=== PATIENT | female | born 1945 | race Caucasian/White ===

== ENCOUNTER → 2020-03-31 09:03 | Outpatient (BNVA) | payer MEDICARE, OTHER, SELFPAY | PROVIDERS: Family Provider Family Medicine; Visit Provider Dermatology | DX: L57.0 Actinic keratosis (principal); L82.0 Inflamed seborrheic keratosis; L85.3 Xerosis cutis; D18.01 Hemangioma of skin and subcutaneous tissue; Z85.89 Personal history of malignant neoplasm of other organs and systems; Z12.83 Encounter for screening for malignant neoplasm of skin | CPT/HCPCS: 17000; 17003; 99203 ==

== ENCOUNTER 2020-08-19 02:56 | Emergency (ER) | payer MEDICARE, OTHER, SELFPAY ==
[2020-08-19] VITALS (9 sets, daily range): BP systolic 130–188; BP diastolic 74–130; PULSE 56–87; RESP 14–23; TEMP 36.8; O2SAT 95–98; BMI 33.9
--- NOTE | 2020-08-19 02:59 | ED_ITS ---
HPI - Chest Pain General: Chief Complaint: Chest Pain Stated Complaint: CHEST PAIN Time Seen by Provider: 08/19/20 02:58 Source: patient Mode of arrival: ambulatory Limitations: no limitations History of Present Illness: HPI narrative: Nicole is a very nice 74-year-old female who comes in complaining of epigastric pain that has been constant for the past 24 hours. Initially she thought she had food poisoning as she ate some place that she did not normally eat in the food did not taste right to her. Within a few hours after eating this food she began to vomit and have sign ificant epigastric pain. Since then the pain is continued and she has vomited multiple times since. She states the vomit is mostly bile. She has loss of appetite but denies any migration of her pain. Denies any diarrhea. There is been no blood in her stools or blood in her emesis. She states that epigastric pain is a tight feeling in the center of her upper abdomen that does not radiate. She does state the pain because her breath to get taken away. She had one episode of diaphoresis but not consistently with this. She is unaware of any aggravating or alleviating factors. Patient denies having anything similar to this in the past. She did try taking 2 oxycodone's that she had at home for the pain but she states it did not help. Associated symptoms: Reports abdominal pain, nausea and vomiting; Deny diaphoresis, dyspnea, fever(s), palpitations or syncope Review of Systems Const: Denies: fever(s), chills, body aches, fatigue, malaise or diaphoresis Eyes: Denies: change in vision, blurry vision, photophobia, eye discomfort, eye discharge, eye redness or yellow eyes ENMT: Denies: throat pain, odynophagia, hoarseness, swelling of lips/tongue, ear or mastoid pain, ear discharge, change in hearing or nasal discharge Card: Denies: chest pain, palpitations, irregular heart rhythm, edema, lightheadedness, syncope, pre-syncope, dyspnea on exertion or orthopnea Resp: Denies: dyspnea, productive cough, non-productive cough, wheezing, hemoptysis or chest congestion GI: Reports: abdominal pain, nausea and vomiting; Denies: hematemesis, coffee ground emesis, heartburn, diarrhea, constipation, GI cramping, hematochezia or melena : Denies: flank pain, dysuria, urinary frequency, urinary urgency or hematuria Musc: Denies: neck pain, back pain, extremity pain, extremity swelling, joint pain, joint swelling, joint redness, joint warmth or joint stiffness Skin/Breast: Denies: rash, pruritus, erythema, skin pain or skin tenderness Neuro: Denies: headache(s), numbness in extremities, weakness in extremities, sensory changes, lack of coordination, difficulty walking, dizziness, vertigo, confusion, Slurred speech present or seizure-like activity Pawel/Lymph: Denies: easy bruising, easy bleeding, petechiae, purpura or enlarged lymph nodes All/Imm: Denies: urticaria, throat swelling, tongue swelling, facial swelling or acute wheezing PFSH ED PFSH: Medical History (Updated 08/19/20 @ 05:21 by Lolis Aden) Cervical cancer Colonic polyp History of squamous cell carcinoma Hypertension Squamous acanthoma of left upper extremity Surgical History (Updated 08/19/20 @ 03:13 by Lolis Aden) H/O: hysterectomy Family History Father Hypertension Social History (Updated 03/31/20 @ 09:21 by Mariama Ndiaye LPN) Smoking and tobacco status: never smoked Alcohol intake: never Physical Exam Const: COMMON NORMALS: no acute distress, patient oriented x3, no limitations and alert GENERAL APPEARANCE: cooperative HENMT: COMMON NORMALS: normocephalic, atraumatic, external ears normal, EAC's normal and Normal external nose present HEAD & SCALP: normal to inspection, normocephalic and atraumatic FACE & SINUS: normal facial exam and face symmetric NOSE: Normal external nose present and Normal nares present EXTERNAL EAR: Yes external ears normal EXTERNAL AUDITORY CANAL: EAC's normal MOUTH: Normal oral and palatal mucosa present, lip normal and tongue normal Eye: COMMON NORMALS: Equal, round and reactive pupils present and conjunctivae normal GENERAL EYE: appearance normal, both eyes and all related structures ALIGNMENT: Yes alignment normal PERIORBITAL: periorbital findings normal EYELID: eyelids normal CONJUNCTIVA: Yes conjunctivae normal SCLERA: sclerae normal PUPIL: Yes Equal, round and reactive pupils present Neck/C-Spine: COMMON NORMALS: full ROM, no lymphadenopathy, supple, no meningeal signs and no JVD GENERAL: Yes normal visual inspection and Yes trachea midline Chest: COMMONS NORMALS: normal inspection of the chest and normal palpation of entire chest wall Resp: COMMON NORMALS: normal respiratory effort, No retractions, No use of accessory muscles and clear to auscultation bilaterally EFFORT & INSPECTION: Yes able to speak in complete sentences and Yes symmetric chest movement AUSCULTATION: clear to auscultation bilaterally, no crackles, no rales, no rhonchi and no wheezes Cardio: COMMON NORMALS: no JVD, regular rate, regular rhythm, S1 normal heart sound present and S2 normal heart sound present RATE: regular rate RHYTHM: regular rhythm HEART SOUNDS: S1 normal heart sound present, S2 normal heart sound present, no click, no gallops, no murmurs and no rubs GI: COMMON NORMALS: Soft to palpation and No hepatosplenomegaly present PALPATION: Yes Soft to palpation, Yes Tenderness to palpation present (GI) (Epigastric and right upper quadrant -moderate without rebound or guarding.), No Guarding due to palpation present (GI), No Rigid due to palpation, Yes No hepatosplenomegaly present, No Hernia present, No Palpable mass present and No Pulsatile mass present : COMMON NORMALS: Yes no CVA tenderness BLADDER/KIDNEY EXAM: Yes no CVA tenderness EXTERNAL FEMALE EXAM: No Hernia present Back/Pelvis: COMMON NORMALS: no CVA tenderness, thoracic and lumbar spine normal to inspection, no thoracic nor lumbar tenderness and thoraco-lumbar ROM normal Extremity: COMMON NORMALS: normal to inspection, full ROM, capillary refill normal, no joint enlargement, no clubbing, cyanosis or edema and no calf tenderness Neuro: COMMON NORMALS: patient oriented x3, CN's II-XII intact bilaterally, moves all extremities, no focal motor deficits and no sensory deficits noted SENSORIUM/ORIENTATION: Yes alert MENINGEAL SIGNS: Yes no meningeal signs SPEECH: speech normal Psych: COMMON NORMALS: mental status grossly normal, Normal thought process present, cooperative, normal affect, speech normal and activity/motor behavior normal SPEECH: Yes normal speech THOUGHT PROCESS: Normal thought process present Skin: COMMON NORMALS: no rashes or lesions noted, turgor normal, no jaundice, no petechiae and no mottling GENERAL SKIN EXAM: no rashes or lesions noted and turgor normal Course Vital Signs: Vital signs: Vital Signs Temperature 98.3 F 08/19/20 02:59 Pulse Rate 67 08/19/20 04:49 Respiratory Rate 15 08/19/20 04:49 Blood Pressure 131/95 08/19/20 04:49 Pulse Oximetry 95 08/19/20 04:49 MDM - Chest Pain MDM Narrative: Medical decision making narrative: 0523 -Mrs. Haskins is a very nice 74-year-old female who comes in with 24 to 36 hours worth of constant epigastric and right upper quadrant pain. Patient has had several episodes of bilious vomiting. Her pain is located in the epigastric and right upper quadrant and can be reproduced on palpation. She has no lower abdominal pain. She denies any urinary symptoms or diarrhea. There is been no blood in her vomit or blood in her stools. On ultrasound the patient has gallstones including some in the neck of the gallbladder. Her gallbladder wall was not thickened. Her liver enzymes were consistent with a fatty liver but there was no signs of biliary obstruction. Differential diagnosis is extensive including cholecystitis, peptic ulcer disease, gastritis, GERD, bowel obstruction, among many others. Here the patient got complete relief with a GI cocktail but then after approximately 45 minutes the patient thought the pain was beginning to recur so we gave her morphine which subsided the recurrence of pain. The patient's EKGs have been unremarkable and her troponins are normal and not elevating. The patient feels dramatically better now and wants to go home. Her was concerned that she was in so much pain at home that if this recurred she may not be able to tolerate it. I offered to call Dr. Soriano and have him consider her for observation and possible consideration of cholecystectomy or EGD but she declines. She states she is feeling so much better she would like to go home. I have informed her that this does not rule out severe or even possibly life-threatening cause of her pain in her abdomen. Patient understands this and she does understand the importance of follow-up. She is going to follow a clear liquid diet and advance only as tolerated. I will place her on Augmentin to cover any possible developing cholecystitis. Patient agrees to return if her abdominal pain returns, she doubles a fever, she is to vomit again or has any new symptoms. At this time on repeat exam the patient is stable vital signs her abdomen is soft and nontender. Lab Data: Attestation: I reviewed the patient's lab results. Labs: Lab Results 08/19/20 08/19/20 08/19/20 Range/Units 03:09 03:09 03:09 WBC 13.3 H (4.0-10.0) 10^3/ uL RBC 4.83 (4.1-5.3) 10^6/u L Hgb 14.7 (11.5-15.3) g/dL Hct 44.2 (37.0-47.0) % MCV 91.5 (81-99) fL MCH 30.4 (28.0-34.0) pg MCHC 33.3 (30.0-36.0) g/dL RDW 14.0 (12.1-15.1) % Plt Count 295 (130-400) 10^3/c mm MPV 10.0 (7.4-10.4) fL Neut % (Auto) 74.0 % Lymph % (Auto) 17.9 % [place] % (Auto) 7.0 % Eos % (Auto) 0.5 % Baso % (Auto) 0.4 % Neut # (Auto) 9.85 H (1.8-7.7) 10^3/u L Lymph # (Auto) 2.4 (0.8-4.8) 10^3/u L [place] # (Auto) 0.9 (0.2-0.9) 10^3/u L Eos # (Auto) 0.1 (0.0-0.8) 10^3/u L Baso # (Auto) 0.1 (0.0-0.1) 10^3/u L Nucleated RBC % (a uto) 0 % Nucleated RBCs # 0.0 /100WBC PT 12.70 (12.1-14.9) SECO NDS INR 0.92 (0.8-1.2) Sodium 134 L (136-145) mmol/L Potassium 3.0 L (3.5-5.1) mmol/L Chloride 96 L (98-107) mmol/L Carbon Dioxide 26 (22-29) mmol/L Anion Gap 15.0 (5-19) BUN 16 (8-23) mg/dL Creatinine 0.7 (0.5-0.9) mg/dL GFR Calculation Not Reportable Glucose 165 H (65-115) mg/dL Calculated Osmolal ity 283 L (285-295) mOsm/k g Calcium 9.3 (8.5-10.5) mg/dL Magnesium 1.8 (1.7-2.3) mg/dL Total Bilirubin 1.0 (0.15-1.2) mg/dL AST 39 H (0-32) U/L ALT 44 H (0-33) U/L Alkaline Phosphata se 90 (35-105) IU/L Troponin T Baselin e (0-10) ng/L Troponin T 120 Min [place] (0-10) ng/L Delta Troponin T (0-10) ABS# NT-Pro-B Natriuret Pep 138 H (0-125) pg/mL Total Protein 7.0 (6.6-8.7) g/dL Albumin 4.3 (3.5-5.2) g/dL Globulin 2.7 (1.3-4.6) g/dL Lipase 21 (13-60) U/L H. pylori IgG Anti body (Negative) 08/19/20 08/19/20 08/19/20 Range/Units 03:09 03:09 04:48 WBC (4.0-10.0) 10^3/ uL RBC (4.1-5.3) 10^6/u L Hgb (11.5-15.3) g/dL Hct (37.0-47.0) % MCV (81-99) fL MCH (28.0-34.0) pg MCHC (30.0-36.0) g/dL RDW (12.1-15.1) % Plt Count (130-400) 10^3/c mm MPV (7.4-10.4) fL Neut % (Auto) % Lymph % (Auto) % [place] % (Auto) % Eos % (Auto) % Baso % (Auto) % Neut # (Auto) (1.8-7.7) 10^3/u L Lymph # (Auto) (0.8-4.8) 10^3/u L [place] # (Auto) (0.2-0.9) 10^3/u L Eos # (Auto) (0.0-0.8) 10^3/u L Baso # (Auto) (0.0-0.1) 10^3/u L Nucleated RBC % (a uto) % Nucleated RBCs # /100WBC PT (12.1-14.9) SECO NDS INR (0.8-1.2) Sodium (136-145) mmol/L Potassium (3.5-5.1) mmol/L Chloride (98-107) mmol/L Carbon Dioxide (22-29) mmol/L Anion Gap (5-19) BUN (8-23) mg/dL Creatinine (0.5-0.9) mg/dL GFR Calculation Glucose (65-115) mg/dL Calculated Osmolal ity (285-295) mOsm/k g Calcium (8.5-10.5) mg/dL Magnesium (1.7-2.3) mg/dL Total Bilirubin (0.15-1.2) mg/dL AST (0-32) U/L ALT (0-33) U/L Alkaline Phosphata se (35-105) IU/L Troponin T Baselin e 7 (0-10) ng/L Troponin T 120 Min [place] 7.14 (0-10) ng/L Delta Troponin T 0.14 (0-10) ABS# NT-Pro-B Natriuret Pep (0-125) pg/mL Total Protein (6.6-8.7) g/dL Albumin (3.5-5.2) g/dL Globulin (1.3-4.6) g/dL Lipase (13-60) U/L H. pylori IgG Anti body Negative (Negative) Imaging Data^: CXR: Attestation: I personally reviewed and interpreted this imaging study as follows: My impression: Borderline cardiomegaly. Poor inspiration. No acute cardiopulmonary findings. US: My impression: Ultrasound abdomen, tech interpretation -gallstones present with gallstone in the neck of gallbladder. No wall thickening. Normal common bile duct. No pericholecystic fluid. Fatty liver. Otherwise unremarkable exam. EKG Data^: EKG 1: Attestation: I personally reviewed and interpreted this EKG as follows: EKG interpretation date: 08/19/20 EKG interpretation time: 03:01 Interpretation: Normal sinus rhythm at 70 beats minute, no blocks, normal intervals, nonspecific ST and T wave changes. No old for comparison. EKG 2: Attestation: I personally reviewed and interpreted this EKG as follows: EKG interpretation date: 08/19/20 EKG interpretation time: 04:49 Interpretation: Normal sinus rhythm at 65 beats a minute, no blocks, normal intervals, nonspecific ST and T wave changes. Similar to previous. Discharge Plan Discharge Patient Disposition: Home Clinical Impression: Abdominal pain Qualifiers: Abdominal location: right lower quadrant Qualified Code(s): R10.31 - Right lower quadrant pain Condition: Stable Prescriptions: New Zofran 4 mg tablet 4 mg PO Q6H PRN (Reason: nausea and vomiting) Qty: 20 RF: 0 Protonix 40 mg tablet,delayed release (DR/EC) 40 mg PO DAILY Qty: 30 RF: 0 Augmentin 875-125 mg tablet 1 tab PO BID 10 Days Qty: 20 RF: 0 Carafate 1 gram tablet 1 g PO Q6H 28 Days Qty: 112 RF: 0 No Action Pulmicort Flexhaler 180 mcg/actuation aerosol powdr breath activated 2 inh INHALATION BID RF: 0 hydrochlorothiazide 25 mg tablet 25 mg PO DAILY RF: 0 fexofenadine [Rafaela Allergy] 60 mg tablet 60 mg PO Q12H PRNRF: 0 Discharge Orders: Discharge ED (Routine); Ordered 08/19/20 Ordered By: Lolis Aden Referrals: Rikki Soriano MD [Physician] - 1-3 days Discharge Diet: Advance as tolerated and Clear Liquid Patient Instructions: Clear Liquid Diet (ED), Abdominal Pain (ED) Activity Restrictions/Additional Instructions: Please return to the ER immediately for any of the signs or symptoms listed on your discharge instruction sheets, worsening/changing of your symptoms, you are not getting better as quickly as expected, or for ANY other cause or concerns. You have been offered further evaluation and care here but have declined. If you develop chest pain, your abdominal pain returns, he began to vomit again, he develop a fever, or you develop any new signs or symptoms please return to the ER immediately for recheck. Follow a clear liquid diet and advance it only as your pain subsides and stays gone. Take the medications as I have prescribed you. Be certain to call Dr. Soriano's office as soon as possible for an appointment to follow-up with him. Coding Level of Care Code ED Weight Training Instructor for Chg Fwd Exam Comprehensive
--- NOTE | 2020-08-19 02:59 | XR_ITS ---
WS: [id number] PORTABLE CHEST HISTORY: Chest pain COMPARISON: None available. Pulmonary hyperexpansion with mild pulmonary congestion. No pleural effusion or pneumothorax. Cardiac size: Normal. Mediastinum/Aorta: Normal mediastinum. No osseous abnormality seen. XR/XR chest 1V portable [id number] IMPRESSION: Mild pulmonary venous congestion. No pneumonia.
[2020-08-19 03:13] LABS: Basophils # 0.1 10^3/uL (0.0-0.1); Basophils % 0.4 %; Eosinophils # 0.1 10^3/uL (0.0-0.8); Eosinophils % 0.5 %; Hematocrit 44.2 % (37.0-47.0); Hemoglobin 14.7 g/dL (11.5-15.3); Lymphocytes # 2.4 10^3/uL (0.8-4.8); Lymphocytes % 17.9 %; Mean Corpuscular HGB Conc 33.3 g/dL (30.0-36.0); Mean Corpuscular Hemoglobin 30.4 pg (28.0-34.0); Mean Corpuscular Volume 91.5 fL (81-99); Monocytes # 0.9 10^3/uL (0.2-0.9); Neutrophils # 9.85 10^3/uL (1.8-7.7); Nucleated Red Blood Cells % 0 %; Platelet Count 295 10^3/cmm (130-400); Red Blood Count 4.83 10^6/uL (4.1-5.3); White Blood Count 13.3 10^3/uL (4.0-10.0)
[2020-08-19] MEDS: sodium chloride 0.9% 1,000 ML 100 ML IV (03:20)
[2020-08-19] MEDS: ondansetron 2 mg/ML SDV 2 mL 4 MG IVP ×2 (03:20→05:28)
[2020-08-19] MEDS: lidocaine 2% viscous 15 ML, aluminum-mag hydrox-simethicon 30 ML, sucralfate oral liq 1 GM PO (03:22)
[2020-08-19] MEDS: aspirin 325 mg Tablet PO (03:23)
--- NOTE | 2020-08-19 03:31 | US_ITS ---
WS: [id number] ULTRASOUND ABDOMEN LIMITED CLINICAL INFORMATION: Pain COMPARISON: None. FINDINGS: Liver Size: Normal. Craniocaudal length: 15.4 cm. Echogenicity: Normal. Surface nodularity: None. Mass (size and location): None. Bile ducts Intrahepatic ducts: Normal. Common bile duct diameter: 0.5 cm. Gallbladder Cholelithiasis Gallstones: Present Gallbladder sludge: None. Gallbladder wall thickening: None. Pericholecystic fluid: None. Sonographic Younger sign: Absent. Pancreas Normal as visualized. Right kidney: Normal. Hydronephrosis: None. Size: 11.2 cm x 5.8 cm x 4.7 cm. Abdominal aorta and IVC Visualized portions are normal. Ascites: None. US/US gall bladder [id number] IMPRESSION: 1. Liver is normal in appearance. 2. Cholelithiasis. No gallbladder wall thickening or pericholecystic fluid. 3. Normal common bile duct. 4. No hydronephrosis in right kidney.
[2020-08-19 03:37] LABS: Troponin(5th) Baseline 7 ng/L (0-10)
[2020-08-19 03:39] LABS: INR 0.92 (0.8-1.2)
[2020-08-19 03:46] LABS: Alanine Aminotransferase 44 U/L (0-33); Albumin Level 4.3 g/dL (3.5-5.2); Alkaline Phosphatase 90 IU/L (35-105); Aspartate Amino Transferase 39 U/L (0-32); Blood Urea Nitrogen 16 mg/dL (8-23); Calcium 9.3 mg/dL (8.5-10.5); Carbon Dioxide 26 mmol/L (22-29); Chloride 96 mmol/L (98-107); Globulin 2.7 g/dL (1.3-4.6); Glucose 165 mg/dL (65-115); Lipase 21 U/L (13-60); Magnesium 1.8 mg/dL (1.7-2.3); NT Pro B Type Natriuretic Pept 138 pg/mL (0-125); Osmolality Calculated 283 mOsm/kg (285-295); Sodium 134 mmol/L (136-145)
[2020-08-19] MEDS: pantoprazole 40 mg SDV 80 MG IVP (03:50)
[2020-08-19] MEDS: morphine 4 mg/mL SDV 1 mL 5 MG IVP (03:52)
[2020-08-19] MEDS: potassium chloride premix 100 ML 50 MEQ IV (03:58)
[2020-08-19 04:07] LABS: H. Pylori IgG Antibody Negative (Negative)
--- NOTE | 2020-08-19 05:00 | ECG_ITS ---
[facility] Test Date: 2020-08-19 Pat Name: Nicole Haskins Department: Room: Gender: Female Dog Licenser: : 1945 Requested By: Lolis Sam Order Number: [id number] Wong MD: Selin Khan M.D. Measurements Intervals [place] Rate: 65 P: 55 DE: 160 QRS: 27 QRSD: 89 T: 38 QT: 392 QTc: 410 Interpretive Statements SINUS RHYTHM LOW QRS VOLTAGE IN PRECORDIAL LEADS [QRS DEFLECTION < 1.0 mV IN CHEST LEADS] NONSPECIFIC T-WAVE ABNORMALITY No previous ECG available for comparison Electronically Signed On 08-19-2020 6:51:13 CYBER INTELLIGENCE ANALYST by Selin Khan M.D. [id number]
[2020-08-19 05:10] LABS: Troponin 5 2HR 7.14 ng/L (0-10); Troponin 5 2HR Delta 0.14 ABS# (0-10)
[2020-08-19] MEDS: amoxicillin-clav 875-125 mg Tablet 1 TAB PO (05:28)
== END 2020-08-19 06:03 | disposition home or self-care (01) ==
PROVIDERS: Emergency Provider Emergency Medicine
DX: R10.31 Right lower quadrant pain (principal); Z85.41 Personal history of malignant neoplasm of cervix uteri; I10 Essential (primary) hypertension
CPT/HCPCS: 12345; 71045; 76705; 80053; 83690; 83735; 83880; 84484; 85025; 85610; 86677; 93005; 96361; 96365; 96366; 96375; 96376; 99282; 99284; C9113; J2270; J2405; J3480; J7030

== ENCOUNTER 2020-08-27 07:58 | Outpatient (CLI) | payer MEDICARE, OTHER, SELFPAY ==
--- NOTE | 2020-08-27 09:30 | CT_ITS ---
WS: [id number] CT ABDOMEN PELVIS TECHNIQUE: Contrast-enhanced CT of the abdomen and pelvis with coronal and sagittal reformatted image s. CLINICAL INFORMATION: R10.31 - Right lower quadrant pain COMPARISON: Ultrasound August 19, 2020 DLP: 1167.[address] scans at [facility] use at least one of these dose optimization techniques: automat ed exposure control; mA and/or kV adjustment per patient size (includes targeted exams where dose is matched to clinical indication); or iterative reconstruction. FINDINGS: Mild diffuse fatty infiltration of the liver. Cholelithiasis. Prominent gallstones with a calculus in the gallbladder neck near the cystic duct. Gallbladder wall thickening and edema with enhancement [place] spicious for cholecystitis. This appears progressed since the prior ultrasound. Recommend clinical co rrelation for cholecystitis. No fluid in the gallbladder fossa. Mild prominence of the common bile du ct measuring 7.6 mm. Gallbladder wall thickening measures approximately 5.7 mm Fatty atrophy of the pancreas. No pancreatic mass. Normal spleen. Normal GE junction. Lung bases are well aerated. Adrenal glands are normal. No hydronephrosis. Normal renal parenchymal enhancement. Normal caliber abdominal aorta. No abdominal lymphadenopathy. No evidence of small or large bowel obs truction. Fat-containing umbilical hernia. CT/CT abdomen pelvis w con* [id number] IMPRESSION: 1. Diffuse gallbladder wall thickening with cholelithiasis and gallbladder wal l enhancement suspicious for cholecystitis. Calculus in the gallbladder neck ne ar the cystic duct. No fluid in the gallbladder fossa. Findings appear more pro minent or progressed compared to the recent ultrasound August 19, 2020 2. Mild diffuse fatty infiltration of the liver. 3. Pancreas appears normal 4. No other acute findings. Notified Everett Gaming MD at 08/27/2020 11:17 AM.
[2020-08-27] MEDS: iohexol 300 mg/mL 50 mL Btl PO (09:33)
[2020-08-27] MEDS: iohexol 300 mg/mL 100 mL Btl IV (09:49)
== END 2020-08-27 07:59 | disposition home or self-care (01) ==
PROVIDERS: PCP Family Medicine; Visit Provider Surgery
DX: R10.31 Right lower quadrant pain (principal); K76.0 Fatty (change of) liver, not elsewhere classified; K80.20 Calculus of gallbladder without cholecystitis without obstruction
CPT/HCPCS: 74177; Q9967

== ENCOUNTER 2020-09-10 19:53 | Day surgery (SDC) | payer MEDICARE, OTHER, SELFPAY ==
[2020-09-10 20:01] VITALS: BP 154/115; PULSE 130; RESP 24; TEMP 36.6; O2SAT 96; BMI 35.5
[2020-09-10 21:19] LABS: Basophils # 0.1 10^3/uL (0.0-0.1); Basophils % 0.5 %; Eosinophils # 0.3 10^3/uL (0.0-0.8); Eosinophils % 1.9 %; Hematocrit 44.8 % (37.0-47.0); Hemoglobin 14.7 g/dL (11.5-15.3); Lymphocytes # 1.8 10^3/uL (0.8-4.8); Lymphocytes % 12.3 %; Mean Corpuscular HGB Conc 32.8 g/dL (30.0-36.0); Mean Corpuscular Hemoglobin 30.4 pg (28.0-34.0); Mean Corpuscular Volume 92.8 fL (81-99); Mean Platelet Volume 10.1 fL (7.4-10.4); Monocytes # 0.8 10^3/uL (0.2-0.9); Monocytes % 5.8 %; Neutrophils # 11.31 10^3/uL (1.8-7.7); Neutrophils % 79.3 %; Nucleated Red Blood Cells % 0 %; Platelet Count 388 10^3/cmm (130-400); Red Blood Count 4.83 10^6/uL (4.1-5.3); Red Cell Distribution Width 14.1 % (12.1-15.1); White Blood Count 14.3 10^3/uL (4.0-10.0)
[2020-09-10 21:35] LABS: Albumin Level 3.8 g/dL (3.5-5.2); Alkaline Phosphatase 118 IU/L (35-105); Blood Urea Nitrogen 15 mg/dL (8-23); Calcium 9.9 mg/dL (8.5-10.5); Carbon Dioxide 26 mmol/L (22-29); Chloride 95 mmol/L (98-107); Globulin 3.7 g/dL (1.3-4.6); Glucose 151 mg/dL (65-115); Lipase 25 U/L (13-60); Osmolality Calculated 284 mOsm/kg (285-295); Sodium 135 mmol/L (136-145); Total Bilirubin 0.9 mg/dL (0.15-1.2); Total Protein 7.5 g/dL (6.6-8.7)
[2020-09-10 21:44] LABS: Alanine Aminotransferase 22 U/L (0-33); Anion Gap 17.4 (5-19); Aspartate Amino Transferase 23 U/L (0-32); Potassium 3.4 mmol/L (3.5-5.1)
[2020-09-10 22:05] VITALS: BP 115/86; PULSE 94; RESP 20; O2SAT 92
--- NOTE | 2020-09-10 22:05 | CTR_ITS ---
PROCEDURE INFORMATION: Exam: CT Abdomen And Pelvis With Contrast Exam date and time: 09/10/2020 10:29 PM Age: 74 years old Clinical indication: Abdominal pain; Localized; Right upper quadrant (ruq); Prior surgery; Surgery date: 6+ months; Surgery type: Hyst; Patient HX: Ruq abd pain w n/v; Additional info: Ruq abdominal pain. Cholecystitis? TECHNIQUE: Imaging protocol: Computed tomography of the abdomen and pelvis with intravenous contrast. Radiation optimization: All CT scans at this facility use at least one of these dose optimization techniques: automated exposure control; mA and/or kV adjustment per patient size (includes targeted exams where dose is matched to clinical indication); or iterative reconstruction. Contrast material: OMNI 300; Contrast volume: 95 ml; Contrast route: INTRAVENOUS (IV); COMPARISON: CT abdomen pelvis w con* [id number] 08/27/2020 9:47 AM RADIATION DOSE METRICS: Total DLP (mGy-cm): 1066.47 FINDINGS: Liver: Normal. No mass. Gallbladder and bile ducts: Gallstones, the largest is calcified measuring 2.5 cm. Mild gallbladder wall thickening and enhancement. The bile ducts are normal. Pancreas: Normal. No ductal dilation. Spleen: Normal. No splenomegaly. Adrenal glands: Normal. No mass. Kidneys and ureters: Normal. No hydronephrosis. Stomach and bowel: Unremarkable. No obstruction. No mucosal thickening. Appendix: The appendix is normal. Intraperitoneal space: Unremarkable. No free air. No significant fluid collection. Vasculature: Unremarkable. No abdominal aortic aneurysm. Lymph nodes: Unremarkable. No enlarged lymph nodes. Urinary bladder: Unremarkable as visualized. Reproductive: The uterus is absent. The ovaries are normal. Bones/joints: Unremarkable. No acute fracture. Soft tissues: Small fat containing left diaphragm hernia. Small fat containing umbilical hernia. CT/CT abdomen pelvis w con* [id number] IMPRESSION: 1. Cholelithiasis and findings consistent with acute cholecystitis. This can be further evaluated with ultrasound. Radiation Dose CTDIVOL = (mGy): DLP = 1066.47 (mGy-cm)
--- NOTE | 2020-09-10 22:20 | W.ED.ABDPA2 ---
HPI - Abdominal Pain General: Chief Complaint: Abdominal Pain Stated Complaint: gallbladder attack Time Seen by Provider: 09/10/20 22:03 History of Present Illness: HPI narrative: The patient is a 74-year-old female with past medical history cholelithiasis who comes to the ER complaining of right upper quadrant abdominal pain since earlier today. It is severe and worse than it has been. She had an ultrasound earlier this month which showed cholelithiasis and saw a general surgeon who recommended a CT prior to surgery. CT on August 27 which showed gallbladder wall thickening and possibly cholecystitis at that time. She presents today with the same symptoms but worse. She is tachycardic at 130. Afebrile. White blood cell count 14 MD elicited complaint: abdominal pain Onset (ago): hour(s) (8) Pain Consistency: constant Location: RUQ Severity: moderate Pain scale (0-10): 5 Quality: cramping and sharp Radiation: epigastric Exacerbating factors: nothing Relieving factors: nothing Associated Symptoms: Reports nausea and vomiting (Bile green vomit) Review of Systems General: Reports: 10 or more systems reviewed and unremarkable except in HPI and below Const: Denies: fatigue Eyes: Denies: change in vision, blurry vision or eye redness ENMT: Denies: throat pain, swelling of lips/tongue, ear or mastoid pain or nasal congestion Card: Denies: chest pain, palpitations, irregular heart rhythm, edema, dyspnea on exertion or orthopnea Resp: Denies: dyspnea, productive cough or non-productive cough GI: Reports: abdominal pain, nausea and vomiting (Bile green vomit) : Denies: flank pain, difficulty voiding, urinary frequency or urinary urgency Musc: Denies: neck pain, back pain, extremity pain, joint pain, joint redness, limited range of motion or muscle weakness Skin/Breast: Denies: rash, pruritus, erythema, skin pain or skin tenderness Neuro: Denies: headache(s), numbness in extremities, weakness in extremities, sensory changes, difficulty walking, dizziness, confusion or Slurred speech present Psych: Denies: anxiety or depression Endo: Denies: polyuria All/Imm: Denies: urticaria, throat swelling or tongue swelling PFSH ED PFSH: Medical History Cervical cancer Colonic polyp History of squamous cell carcinoma Hypertension Squamous acanthoma of left upper extremity Surgical History H/O: hysterectomy Family History Father Hypertension Denies family history of Anesthesia complication Bleeding disorder Social History Smoking and tobacco status: never smoked Alcohol intake: never Adopted: No Caregiver/support person: Yes Lives independently: Yes Household members: spouse Housing: House Marital status: Current occupational status: retired Pets and animals: No History of recent travel: No Sexually active: No Current gender identity: Female Esmer/Uatsdin: Jehovah'S Witness Special esmer needs: No Physical Exam Const: COMMON NORMALS: no acute distress, average body habitus, patient oriented x3, no limitations, healthy appearing, alert and well nourished GENERAL APPEARANCE: cooperative, comfortable, well kempt and well developed ORIENTATION/CONSCIOUSNESS: Yes awake, Yes oriented to person, Yes oriented to place and Yes oriented to time HENMT: COMMON NORMALS: normocephalic, external ears normal and Normal external nose present HEAD & SCALP: normal to inspection and normocephalic NOSE: Normal external nose present EXTERNAL EAR: Yes external ears normal MOUTH: Normal oral and palatal mucosa present THROAT: posterior oropharynx normal Eye: COMMON NORMALS: Equal, round and reactive pupils present and EOMs intact bilaterally GENERAL EYE: appearance normal, both eyes and all related structures PUPIL: Yes Equal, round and reactive pupils present Neck/C-Spine: COMMON NORMALS: full ROM, no lymphadenopathy, no meningeal signs and no JVD GENERAL: Yes normal visual inspection Lymph: LYMPHATIC: no lymphadenopathy noted Chest: COMMONS NORMALS: normal inspection of the chest and normal palpation of entire chest wall Resp: COMMON NORMALS: normal respiratory effort, No retractions, No use of accessory muscles, clear to auscultation bilaterally and percussion normal EFFORT & INSPECTION: Yes able to speak in complete sentences AUSCULTATION: clear to auscultation bilaterally PERCUSSION: percussion normal Cardio: COMMON NORMALS: no JVD, regular rate, regular rhythm, S1 normal heart sound present, S2 normal heart sound present and Peripheral pulses 2+ throughout RATE: regular rate RHYTHM: regular rhythm HEART SOUNDS: S1 normal heart sound present and S2 normal heart sound present PERIPHERAL PULSES: Peripheral pulses 2+ throughout GI: COMMON NORMALS: Soft to palpation INSPECTION: Yes normal to inspection PALPATION: Yes Soft to palpation, Yes Tenderness to palpation present (GI) Details: RUQ and No Rebound tenderness present : COMMON NORMALS: Yes no CVA tenderness BLADDER/KIDNEY EXAM: Yes no CVA tenderness Back/Pelvis: COMMON NORMALS: no CVA tenderness, thoracic and lumbar spine normal to inspection, no thoracic nor lumbar tenderness and thoraco-lumbar ROM normal Extremity: COMMON NORMALS: normal to inspection, full ROM, capillary refill normal, no joint enlargement and no pedal edema GENERAL: Yes normal exam except as noted Neuro: COMMON NORMALS: patient oriented x3, CN's II-XII intact bilaterally, moves all extremities, no focal motor deficits, no sensory deficits noted and gait normal SENSORIUM/ORIENTATION: Yes alert, Yes oriented to person, Yes oriented to place and Yes oriented to time MENINGEAL SIGNS: Yes no meningeal signs Psych: COMMON NORMALS: mental status grossly normal, Normal thought process present, cooperative, normal affect and speech normal APPEARANCE: Yes well kempt ATTITUDE: Yes calm SPEECH: Yes normal speech THOUGHT PROCESS: Normal thought process present Skin: COMMON NORMALS: no rashes or lesions noted GENERAL SKIN EXAM: no rashes or lesions noted Course Vital Signs: Vital signs: Vital Signs Temperature 97.9 F 09/10/20 20:01 Pulse Rate 130 H 09/10/20 20:01 Respiratory Rate 24 H 09/10/20 20:01 Blood Pressure 154/115 09/10/20 20:01 Pulse Oximetry 96 09/10/20 20:01 MDM - Abdominal Pain MDM Narrative: Medical decision making narrative: The patient is a 74-year-old female who came in with right upper quadrant pain. Her CT shows acute cholecystitis. She has been given pain control and is comfortable. I discussed the case with Dr. Dobson who accepts inpatient Lab Data: Labs: Lab Results 09/10/20 09/10/20 Range/Units 20:58 20:58 WBC 14.3 H (4.0-10.0) 10^3/ uL RBC 4.83 (4.1-5.3) 10^6/u L Hgb 14.7 (11.5-15.3) g/dL Hct 44.8 (37.0-47.0) % MCV 92.8 (81-99) fL MCH 30.4 (28.0-34.0) pg MCHC 32.8 (30.0-36.0) g/dL RDW 14.1 (12.1-15.1) % Plt Count 388 (130-400) 10^3/c mm MPV 10.1 (7.4-10.4) fL Neut % (Auto) 79.3 % Lymph % (Auto) 12.3 % Sharkey % (Auto) 5.8 % Eos % (Auto) 1.9 % Baso % (Auto) 0.5 % Neut # (Auto) 11.31 H (1.8-7.7) 10^3/u L Lymph # (Auto) 1.8 (0.8-4.8) 10^3/u L Sharkey # (Auto) 0.8 (0.2-0.9) 10^3/u L Eos # (Auto) 0.3 (0.0-0.8) 10^3/u L Baso # (Auto) 0.1 (0.0-0.1) 10^3/u L Nucleated RBC % (a uto) 0 % Nucleated RBCs # 0.0 /100WBC Sodium 135 L (136-145) mmol/L Potassium 3.4 L (3.5-5.1) mmol/L Chloride 95 L (98-107) mmol/L Carbon Dioxide 26 (22-29) mmol/L Anion Gap 17.4 (5-19) BUN 15 (8-23) mg/dL Creatinine 0.8 (0.5-0.9) mg/dL GFR Calculation Not Reportable Glucose 151 H (65-115) mg/dL Calculated Osmolal ity 284 L (285-295) mOsm/k g Calcium 9.9 (8.5-10.5) mg/dL Total Bilirubin 0.9 (0.15-1.2) mg/dL AST 23 (0-32) U/L ALT 22 (0-33) U/L Alkaline Phosphata se 118 H (35-105) IU/L Total Protein 7.5 (6.6-8.7) g/dL Albumin 3.8 (3.5-5.2) g/dL Globulin 3.7 (1.3-4.6) g/dL Lipase 25 (13-60) U/L Discharge Plan Discharge Patient Disposition: Admitted As Inpatient Clinical Impression: Acute cholecystitis Condition: Stable Discharge Diet: As Directed Discharge Activity: Resume usual activity Coding Level of Care Code ED Barrel Scraper for Missaelg Fwd Exam Comprehensive
[2020-09-10] MEDS: iohexol 300 mg/mL 100 mL Btl 95 ML IV (22:29)
[2020-09-10] MEDS: piperacillin-tazobactam 3.375 GM in sodium chloride 0.9% (plus) 50 ML IV (23:02)
[2020-09-10] MEDS: sodium chloride 0.9% 1,000 ML 999 ML IV (23:03)
[2020-09-10] MEDS: ondansetron 2 mg/ML SDV 2 mL 4 MG IVP (23:14)
[2020-09-10] MEDS: ketorolac 30 mg/mL INJ 15 MG IVP (23:14)
--- NOTE | 2020-09-10 23:42 | PM.HP ---
Providers/Chief Complaint Primary Care Provider: Philippe Morrison MD Chief Complaint: gallbladder attack History of Present Illness Nicole Haskins is a 74 year old female who presented today with chief complaint of emesis. Patient was evaluated by Dr. Gaming for cholelithiasis about 3 weeks ago, CT abdomen did not reveal any pancreatic pathology, she had no active cholecystitis at that time she was instructed to follow fat restricted diet. Today after her lunch of egg and bread she started experiencing right upper quadrant pain, experienced 4-5 bilious emesis without any blood, she has not noticed any fever chest pain shortness of breath. Patient was afraid that she waited too long to go to the hospital last time and after her fourth episode of emesis she presented to the ER. Diagnosis in the ER revealed sepsis secondary to acute cholecystitis due to cholelithiasis without choledocholithiasis. No signs of jaundice, fever. CT abdomen revealed cholecystitis, cholelithiasis no CBD dilation. I will start her on fluids and antibiotics., Dr. Soriano consulted by the ER physician Review of Systems Const: Reports: chills, body aches and fatigue; Denies: fever(s) Eyes: Denies: change in vision ENMT: Denies: throat pain Card: Denies: chest pain Resp: Denies: dyspnea GI: Reports: abdominal pain, nausea, vomiting and diarrhea : Denies: flank pain Musc: Denies: neck pain Skin/Breast: Denies: rash Neuro: Denies: headache(s) Psych: Denies: anxiety Endo: Denies: polyuria Pawel/Lymph: Denies: easy bruising All/Imm: Denies: urticaria Medications/Allergies Home Medications Medication Instructions Recorded Confirmed Last Taken Type budesonide 180 mcg/actuation 2 inh INHALATION BID 03/31/20 08/20/20 Unknown History breath activated powder inhaler fexofenadine 60 mg tablet 60 mg PO Q12H PRN 03/31/20 08/20/20 Unknown History hydrochlorothiazide 25 mg tablet 25 mg PO DAILY 03/31/20 08/20/20 Unknown History ondansetron HCl [Zofran] 4 mg PO Q6H PRN #20 tab 08/19/20 08/20/20 Unknown Rx pantoprazole [Protonix] 40 mg PO DAILY #30 tab 08/19/20 08/20/20 Unknown Rx sucralfate [Carafate] 1 g PO Q6H 28 Days #112 tab 08/19/20 08/20/20 Unknown Rx Allergies Allergy/AdvReac Type Severity Reaction Status Date / Time No Known Allergies Allergy Verified 08/20/20 10:56 PFSH Acute PFSH: Medical History Cervical cancer Colonic polyp History of squamous cell carcinoma Hypertension Squamous acanthoma of left upper extremity Surgical History H/O: hysterectomy Family History Father Hypertension Denies family history of Anesthesia complication Bleeding disorder Social History Smoking and tobacco status: never smoked Alcohol intake: never Adopted: No Caregiver/support person: Yes Lives independently: Yes Household members: spouse Housing: House Marital status: Current occupational status: retired Pets and animals: No History of recent travel: No Sexually active: No Current gender identity: Female Esmer/Pentecostal: Anabaptism Special esmer needs: No Vitals/I&O/Wt Last Vital Signs Temp 97.9 F 09/10/20 20:01 Pulse 130 H 09/10/20 20:01 Resp 24 H 09/10/20 20:01 BP 154/115 09/10/20 20:01 Pulse Ox 96 09/10/20 20:01 Weight last 48 hrs Weight 99.79 kg Physical Exam Narrative: EXAM NARRATIVE: Pleasant elderly female appears younger than stated age Well-hydrated, well-built No active signs of heart failure chest pain, hemodynamically stable hypertensive Right upper quadrant tenderness on deep palpation otherwise no signs of peritonitis abdomen soft nontender bowel sound present, positive Younger's sign S1, S2 sinus rhythm no murmur appreciated Bilateral breath sounds without any adventitious rhonchi or crackles EOMI, PERRLA GCS 15 Low extremity no edema gangrene or ulcer Skin without any ulcer Data : 09/10/20 20:58 09/10/20 20:58 A&P Assessment and plan (1) Acute cholecystitis: Status: Acute (2) Sepsis: Status: Acute Additional A&P Information Sepsis secondary to cholecystitis Cholelithiasis without choledocholithiasis No signs of cholangitis, no jaundice N.p.o. Start Zosyn D5 half-normal saline fluid resuscitation Mild hypokalemia: Repleted Dilaudid for analgesia Zofran antiemetic 4 mg IV every [address] Soriano consulted Full code DVT prophylaxis SCDs in case she would require any intervention avoid anticoagulant agent Attestations Medical Necessity Statement*: Anticipating stay in the hospital cross more than 2 midnights continued IV antibiotics and management of sepsis secondary to cholecystitis Time Spent in Patient Care: (>than 50% of time spent in counselling and/or direct pt care on unit). 35mins Coding Level of Care Code Acute Web Merchant for Jaky Mock Diagnoses Acute cholecystitis K81.0 Sepsis A41.9
[2020-09-10 23:53] VITALS: BP 136/84; PULSE 94; RESP 20; O2SAT 90
[2020-09-11] VITALS (13 sets, daily range): BP systolic 136–164; BP diastolic 72–100; PULSE 69–91; RESP 16–20; TEMP 36.6–36.7; O2SAT 93–97
[2020-09-11 00:02] LABS: Add Urine Microscopic? NO
[2020-09-11 00:10] LABS: Bilirubin Urine Neg (Negative); Blood Urine Neg (Negative); Glucose Urine UA Norm (Normal); Ketones Urine Negative (Negative); Nitrate Urine Negative (Negative); Protein Urine Neg (Negative); Sulfosalicylic Acid Urine Negative (Negative); Urine Appearance Clear (CLEAR); Urine Color Yellow (Yellow); Urobilinogen Urine Norm (Negative); pH Urine 8 (5-7)
[2020-09-11 00:11] LABS: Leukocyte Esterase Urine Negative (Negative)
[2020-09-11] MEDS: dextrose 5%-sod chloride 0.45% 1,000 ML 75 ML IV (03:12)
[2020-09-11 03:39] LABS: Basophils # 0.1 10^3/uL (0.0-0.1); Basophils % 0.6 %; Eosinophils # 0.1 10^3/uL (0.0-0.8); Eosinophils % 0.5 %; Hematocrit 37.2 % (37.0-47.0); Hemoglobin 12.3 g/dL (11.5-15.3); Lymphocytes # 1.5 10^3/uL (0.8-4.8); Lymphocytes % 15.2 %; Mean Corpuscular HGB Conc 33.1 g/dL (30.0-36.0); Mean Corpuscular Hemoglobin 30.6 pg (28.0-34.0); Mean Corpuscular Volume 92.5 fL (81-99); Mean Platelet Volume 9.7 fL (7.4-10.4); Monocytes # 0.6 10^3/uL (0.2-0.9); Monocytes % 5.8 %; Neutrophils # 7.71 10^3/uL (1.8-7.7); Neutrophils % 77.7 %; Nucleated Red Blood Cells % 0 %; Platelet Count 307 10^3/cmm (130-400); Red Blood Count 4.02 10^6/uL (4.1-5.3); Red Cell Distribution Width 14.1 % (12.1-15.1); White Blood Count 9.9 10^3/uL (4.0-10.0)
[2020-09-11 04:06] LABS: Blood Urea Nitrogen 15 mg/dL (8-23); Calcium 8.8 mg/dL (8.5-10.5); Carbon Dioxide 28 mmol/L (22-29); Chloride 99 mmol/L (98-107); Glucose 186 mg/dL (65-115); Osmolality Calculated 286 mOsm/kg (285-295); Sodium 135 mmol/L (136-145)
[2020-09-11 04:07] LABS: Lactate (Lactic Acid level) 1.2 mmol/L (0.5-2.2)
[2020-09-11] MEDS: piperacillin-tazobactam 3.375 GM in sodium chloride 0.9% (plus) 50 ML IV (06:36)
--- NOTE | 2020-09-11 07:43 | P.CONIM_ITS ---
Providers/Reason For Consult Consulting Physican/Specialty*: General Surgery Rikki Soriano MD Reason for Consult*: Acute calculus cholecystitis. Primary Care Provider: Philippe Morrison MD History of Present Illness History of Present Illness Nicole Haskins is a 74 year old female who developed right upper quadrant abdominal pain yesterday afternoon. This was associated with nausea and vomiting without evidence of hematemesis. She did have one episode of diarrhea but there was no evidence of hematochezia. The patient says that she felt gassy, bloated and belchy during the episode. She came to the emergency room and a CAT scan showed changes consistent with acute calculus cholecystitis. The patient says that she has been having episodes like this over the past year and a half, but they seem to be more frequent over the past month or so. She cannot really relate it to any particular factors, including food intake. She has not identified any particular food intolerances. She actually recently discussed the issue with Dr. Gaming in his office as an outpatient after being seen in the emergency department for the same problem approximately three weeks ago; shesays he felt that she was probably heading towards a cholecystectomy. Review of Systems General: Reports: 10 or more systems reviewed and unremarkable except in HPI and below Const: Reports: chills GI: Reports: abdominal pain, nausea, vomiting and diarrhea Meds/Allergies Home Medications and Allergies Home Medications Medication Instructions Recorded Confirmed Last Taken Type budesonide 180 mcg/actuation 2 inh INHALATION BID 03/31/20 08/20/20 Unknown History breath activated powder inhaler fexofenadine 60 mg tablet 60 mg PO Q12H PRN 03/31/20 08/20/20 Unknown History hydrochlorothiazide 25 mg tablet 25 mg PO DAILY 03/31/20 08/20/20 Unknown History ondansetron HCl [Zofran] 4 mg PO Q6H PRN #20 tab 08/19/20 08/20/20 Unknown Rx pantoprazole [Protonix] 40 mg PO DAILY #30 tab 08/19/20 08/20/20 Unknown Rx sucralfate [Carafate] 1 g PO Q6H 28 Days #112 tab 08/19/20 08/20/20 Unknown Rx Allergies Allergy/AdvReac Type Severity Reaction Status Date / Time No Known Allergies Allergy Verified 08/20/20 10:56 Current Medications Current Medications Generic Name Dose Route Start Last Admin Trade Name Freq PRN Reason Stop Dose Admin Piperacillin Sod/Tazobactam 50 mls @ 12.5 mls/hr 09/11/20 06:00 09/11/20 06:36 Sod 3.375 gm/ Sodium Chloride IV 12.5 mls/hr Q8H BRANDON Administration Protocol PFSH Acute PFSH: Medical History (Updated 09/11/20 @ 07:50 by Rikki Soriano MD) Asthma Cervical cancer Colonic polyp Colonoscopy 2016 Hypertension 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 Surgical History (Updated 09/11/20 @ 07:50 by Rikki Soriano MD) H/O: hysterectomy History of breast biopsy History of colonoscopy with polypectomy 2015 Family History Father Hypertension Denies family history of Anesthesia complication Bleeding disorder Social History Smoking and tobacco status: never smoked Alcohol intake: never Adopted: No Caregiver/support person: Yes Lives independently: Yes Household members: spouse Housing: House Marital status: Current occupational status: retired Pets and animals: No History of recent travel: No Sexually active: No Current gender identity: Female Esmer/Anabaptism: Tenriism Special esmer needs: No Vitals/I&O/Wt Last Vital Signs Temp 97.9 F 09/10/20 20:01 Pulse 74 09/11/20 05:06 Resp 18 09/11/20 05:06 BP 137/83 09/11/20 05:06 Pulse Ox 97 09/11/20 05:06 Weight last 48 hrs Weight 220 lb Physical Exam Narrative: EXAM NARRATIVE: The patient was encountered in her room in the emergency department. She does not appear to be in any distress. The pupils are equal. No carotid bruits are heard. The lungs are clear anteriorly. The heart is regular. The abdomen is moderately obese and reveals bowel sounds but they are hypoactive. She has some mild epigastric tenderness and moderate right upper quadrant tenderness but Younger's sign is equivocal. No obvious masses are palpated. The extremities reveal no edema. Neurologically the patient appears to be grossly intact. Data Imaging^: CT Abd/Pel: Radiologist's impression: CT abdomen/pelvis 09/10/2020 IMPRESSION: 1. Cholelithiasis and findings consistent with acute cholecystitis. This can be further evaluated with ultrasound. A&P Assessment and plan (1) Acute cholecystitis due to biliary calculus: CT reviewed. I agree with the diagnosis of acute calculus cholecystitis. I discussed cholecystitis with the patient in some detail. I have recommended a cholecystectomy for her. Surgical risks of bleeding, infection, internal organ injury, etc. were all discussed. She seems to understand and is agreeable to proceeding. The patient has been n.p.o. since yesterday. I will make arrangements for a laparoscopic or possibly open cholecystectomy later this morning. Status: Acute Consult Attestations Medical Necessity Statement: See admitting service's notation. Coding Level of Care Code Acute Reversal Print Inspector for Jaky Mock Diagnoses Acute cholecystitis due to biliary calculus K80.00
[2020-09-11] MEDS: dextrose 5%-ns 0.45% + KCl 40 1,000 ML 125 MEQ IV (07:56)
--- NOTE | 2020-09-11 09:43 | P.PN_ITS ---
Subjective Subjective: Interval history: States she is currently doing all right. She was discussed regarding gallbladder infection with the surgeon. She is wanting to proceed with surgery which may likely happen later this morning. If she is able to she would like to then return home later today. Vitals/I&O/Wt Last Vital Signs Temp 97.9 F 09/10/20 20:01 Pulse 74 09/11/20 08:44 Resp 18 09/11/20 08:44 BP 137/83 09/11/20 05:06 Pulse Ox 97 09/11/20 08:44 Weight last 48 hrs Weight 99.79 kg Physical Exam Const: COMMON NORMALS: no acute distress and patient oriented x3 HENMT: COMMON NORMALS: oropharynx normal Neck/C-Spine: COMMON NORMALS: no JVD Resp: COMMON NORMALS: normal respiratory effort and clear to auscultation bilaterally AUSCULTATION: clear to auscultation bilaterally Cardio: COMMON NORMALS: no JVD, regular rhythm, S1 normal heart sound present, S2 normal heart sound present and No murmurs present (Cardio) RHYTHM: regular rhythm HEART SOUNDS: S1 normal heart sound present and S2 normal heart sound present GI: COMMON NORMALS: Normal to inspection, nondistended, normoactive bowel sounds present, Soft to palpation and non-tender PALPATION: Yes Soft to palpation Extremity: COMMON NORMALS: no joint enlargement and no pedal edema Neuro: COMMON NORMALS: patient oriented x3 and moves all extremities Skin: COMMON NORMALS: no rashes or lesions noted GENERAL SKIN EXAM: no rashes or lesions noted Data : 09/11/20 03:21 09/11/20 03:21 A&P Assessment and plan (1) Acute cholecystitis: Planned for surgery later today. Currently on Zosyn. N.p.o. IV hydration. Hold HCTZ. Appears her aspirin may be prophylactic. Hold. Continue Pulmicort. Status: Deleted (2) Sepsis: Status: Acute Additional A&P Information Hypokalemia: Receiving replacement. Full code DVT prophylaxis SCDs in case she would require any intervention avoid anticoagulant agent Attestations Medical Necessity Statement*: Continue hospitalization for acute cholecystitis. Coding Level of Care Code Acute Repairer Hairspring for [facility]ish Diagnoses Acute cholecystitis K81.0 Sepsis A41.9
[2020-09-11] MEDS: sodium chloride 0.9% 1,000 ML 30 ML IV (10:45)
--- NOTE | 2020-09-11 10:49 | P.ANESASSM_ITS ---
Pre-Anesthetic Assessment Pre-Anesthetic Assessment: Height/Weight: Height 1.68 m Weight 99.79 kg Temp Pulse Resp BP Pulse Ox 97.9 F 77 18 159/100 96 09/10/20 20:01 09/11/20 10:00 09/11/20 08:44 09/11/20 10:00 09/11/20 10:00 Proposed Procedure: Operation Date: 09/11/20 10:30 Proposed Procedures p Laparoscopic Cholecystectomy(Not Applicable) - Rikki Soriano MD Was Beta Elaine taken within 24 hours: N/A Social: Social History: No alcohol and No tobacco Exam: Pre-Anes Outpt Exam: alert, oriented x 3, clear to auscultation bilaterally and regular rate & rhythm Airway: Submandibular: WNL Cervical ROM: WNL MP: 2 Dentition: Full Pulmonary: Pulmonary: Asthma CV/HEM: CV/HEM: HTN : : None reported Hepatic: Hepatic: None reported GI: Comments: Brittany Metabolic: Metabolic: None reported Musc/skel: Musc/skel: None reported Neuropsych: Neuropsych: Depression Anesthetic Plan: ASA status: 3 Anesthesia: General Other: Mod RSI Risk of > 500 ml blood loss (7ml/kg in children): No Meds/Allergies Current Medications: Current Medications Generic Name Dose Route Start Last Admin Trade Name Freq PRN Reason Stop Dose Admin Piperacillin Sod/T azobactam 50 mls @ 12.5 mls /hr 09/11/20 06:00 09/11/20 06:36 Sod 3.375 gm/ So dium Chloride IV 12.5 mls/hr Q8H BRANDON Administration Protocol Potassium Chloride /Dextrose/Sod Cl 1,000 mls @ 125 m ls/hr 09/11/20 07:15 09/11/20 07:56 Dextrose 5%-Ns 0 .45% + Kcl 40 IV 125 mls/hr .Q8H BRANDON Administration PFSH Anesthesia PFSH: Medical History (Updated 09/11/20 @ 07:50 by Rikki Soriano MD) Asthma Cervical cancer Colonic polyp Colonoscopy 2016 Hypertension 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 Surgical History (Updated 09/11/20 @ 07:50 by Rikki Soriano MD) H/O: hysterectomy History of breast biopsy History of colonoscopy with polypectomy 2016 Family History Father Hypertension Denies family history of Anesthesia complication Bleeding disorder Social History Smoking and tobacco status: never smoked Alcohol intake: never Adopted: No Caregiver/support person: Yes Lives independently: Yes Household members: spouse Housing: House Marital status: Current occupational status: retired Pets and animals: No History of recent travel: No Sexually active: No Current gender identity: Female Esmer/Holiness: Sabianist Special esmer needs: No Data Anesthesia CBC & Chem 7: 09/11/20 03:21 09/11/20 03:21 Other Labs: Laboratory Results - last 48 hr 09/10/20 09/10/20 09/10/20 20:58 20:58 23:49 WBC 14.3 H RBC 4.83 Hgb 14.7 Hct 44.8 MCV 92.8 MCH 30.4 MCHC 32.8 RDW 14.1 Plt Count 388 MPV 10.1 Neut % (Auto) 79.3 Lymph % (Auto) 12.3 [place] % (Auto) 5.8 Eos % (Auto) 1.9 Baso % (Auto) 0.5 Neut # (Auto) 11.31 H Lymph # (Auto) 1.8 [place] # (Auto) 0.8 Eos # (Auto) 0.3 Baso # (Auto) 0.1 Nucleated RBC % (auto) 0 Nucleated RBCs # 0.0 Sodium 135 L Potassium 3.4 L Chloride 95 L Carbon Dioxide 26 Anion Gap 17.4 BUN 15 Creatinine 0.8 GFR Calculation Not Reportable Glucose 151 H Calculated Osmolality 284 L Lactate Calcium 9.9 Total Bilirubin 0.9 AST 23 ALT 22 Alkaline Phosphatase 118 H Total Protein 7.5 Albumin 3.8 Globulin 3.7 Lipase 25 Urine Color Yellow Urine Appearance Clear Urine pH 8 H Ur Specific [place] 1.010 Urine Protein Neg Urine Glucose (UA) Norm Urine Ketones Negative Urine Blood Neg Urine Nitrate Negative Urine Bilirubin Neg Prot Sulfosalicylic Acd Negative Urine Urobilinogen Norm Ur Leukocyte Esterase Negative 09/11/20 09/11/20 09/11/20 03:21 03:21 03:21 WBC 9.9 RBC 4.02 L Hgb 12.3 Hct 37.2 MCV 92.5 MCH 30.6 MCHC 33.1 RDW 14.1 Plt Count 307 MPV 9.7 Neut % (Auto) 77.7 Lymph % (Auto) 15.2 [place] % (Auto) 5.8 Eos % (Auto) 0.5 Baso % (Auto) 0.6 Neut # (Auto) 7.71 H Lymph # (Auto) 1.5 [place] # (Auto) 0.6 Eos # (Auto) 0.1 Baso # (Auto) 0.1 Nucleated RBC % (auto) 0 Nucleated RBCs # 0.0 Sodium 135 L Potassium 3.0 L Chloride 99 Carbon Dioxide 28 Anion Gap 11.0 BUN 15 Creatinine 0.8 GFR Calculation Not Reportable Glucose 186 H Calculated Osmolality 286 Lactate 1.2 Calcium 8.8 Total Bilirubin AST ALT Alkaline Phosphatase Total Protein Albumin Globulin Lipase Urine Color Urine Appearance Urine pH Ur Specific [place] Urine Protein Urine Glucose (UA) Urine Ketones Urine Blood Urine Nitrate Urine Bilirubin Prot Sulfosalicylic Acd Urine Urobilinogen Ur Leukocyte Esterase Cardiac Studies: No Data to Display
[2020-09-11] MEDS: metroNIDAZOLE IV 500 MG/100 ML PREMIX 100 MG IV (11:21)
--- NOTE | 2020-09-11 12:17 | PM.OP ---
Operative Report Date of procedure: September 11, 2020 Pre-op Diagnosis: Acute calculus cholecystitis. Post-op Diagnosis: Acute calculus cholecystitis with extensive changes of chronic cholecystitis. Procedure Done: Laparoscopic cholecystectomy. Specimens removed/disposition: Gallbladder. Surgeon: Rikki Soriano Anesthesia: General Estimated blood loss (mL): 10 Complications: None. Condition: stable Disposition: PACU Procedure: The patient was brought to the Operating Room and was placed in a supine position on the Operating Room table. General endotracheal anesthesia was induced. The abdomen was prepped and draped in a sterile fashion. A small vertical incision was carried out in the inferior aspect of the umbilicus. Blunt dissection was carried out down to the fascia, where a small umbilical hernia was identified. The incarcerated fat was excised and the defect was simply elongated inferiorly at the fascial level. A stay suture of 0 Vicryl was placed on either side of the midline and the midline fascia was incised. The underlying peritoneum was opened bluntly and the Ananth port was placed directly into the peritoneal cavity and was held in place with the inflatable balloon. The peritoneal cavity was insufflated with carbon dioxide. The laparoscope was used to inspect the abdominal cavity. No gross abnormalities were initially noted. A 5 millimeter port was placed in the epigastrium under direct vision. Two 5-millimeter ports were placed on the right side of the abdomen under direct vision. The gallbladder was grasped and was elevated. The gallbladder had extensive chronic adhesions all the way along the fundus down to and involving the infundibulum. These were all taken down using some cautery to maintain hemostasis. Blunt dissection and hydrodissection were carried out in the infundibular region of the gallbladder and the cystic duct and cystic artery were identified. The gallbladder was partially removed from the liver bed using cautery and the spatula to confirm the anatomy before the structures were clipped and divided. The gallbladder was then removed from the liver bed using cautery and the spatula. The patient had extensive chronic inflammatory changes in the plane between the gallbladder and the liver. A small hole was inadvertently made in the gallbladder during the dissection and a small amount of bile and some very small stones fell into what eventually would become the gallbladder fossa. These were eventually retrieved with suction. After the gallbladder had been removed from the liver bed, the laparoscope was moved to the epigastric port and the gallbladder was removed from the peritoneal cavity through the umbilical port site after being placed in a laparoscopic bag. Both the fascial and skin incisions at the umbilical wound had to be elongated to allow passage of the gallbladder with all of the stones in place. The stay sutures of Vicryl were tied to each other at the umbilicus. An additional [id number] suture of 0 Vicryl was placed, closing the defect so that it was airtight. The perihepatic spaces were irrigated with saline and the liver bed was reinspected. No ongoing problems were seen. No residual stones were identified in the subhepatic space. The remaining ports were removed from the abdominal wall and the pneumoperitoneum was evacuated. All skin incisions were closed using inverted interrupted sutures of 4-0 Vicryl. Benzoin and Steri-Strips were placed over the incisions and Band-Aids followed. The patient was taken to the Recovery Area in stable condition postoperatively.
--- NOTE | 2020-09-11 12:57 | ANE.PACU2 ---
Inpatient post-anesthesia follow up: Airway intact: Yes Vital signs: Temperature 98.1 F Pulse Rate [Left R adial] 130 Pulse Rate 77 Respiratory Rate 18 Blood Pressure [Ri ght Arm] 154/115 Blood Pressure 143/72 Pulse Oximetry 95 Oxygen Delivery Me thod Room Air Oxygen Flow Rate 8 Fraction of Inspir ed Oxygen Hydration adequate: Yes Nausea and vomiting: No Pain level: 2 Mental status: Baseline
[2020-09-11] MEDS: HYDROcodone-acetaminophen 5-325 mg Tablet 2 TAB PO (13:35)
--- NOTE | 2020-09-11 17:48 | P.DS_ITS ---
Discharge Providers Date of Discharge: September 11, 2020 Attending Provider at Discharge: Sanju Dobson MD Primary Care Provider: Philippe Morrison MD Diagnoses at Discharge Discharge Diagnosis (1) Acute cholecystitis: Status: Deleted (2) Sepsis: Status: Acute Reason for Visit Reason for Visit: gallbladder attack Hospital Course Hospital Course Pleasant 74-year-old lady with history of cholelithiasis, was admitted after presenting with chief complaint of emesis right upper quadrant pain, without signs of sepsis on presentation. With finding of acute cholecystitis on CT abdomen pelvis. Was kept on bowel rest, initiated on Zosyn, fluid resuscitation. Mild hypokalemia was replaced. She was assessed by surgery and underwent uneventful laparoscopic cholecystectomy later the same morning, discharging home after the procedure. She is scheduled to follow-up with surgery in office. Physical Exam Narrative: EXAM NARRATIVE: I saw her in the morning pre-operatively. Const: COMMON NORMALS: no acute distress and patient oriented x3 HENMT: COMMON NORMALS: oropharynx normal Neck/C-Spine: COMMON NORMALS: no JVD Resp: COMMON NORMALS: normal respiratory effort and clear to auscultation bilaterally AUSCULTATION: clear to auscultation bilaterally Cardio: COMMON NORMALS: no JVD, regular rhythm, S1 normal heart sound present, S2 normal heart sound present and No murmurs present (Cardio) RHYTHM: regular rhythm HEART SOUNDS: S1 normal heart sound present and S2 normal heart sound present GI: COMMON NORMALS: Normal to inspection, nondistended, normoactive bowel sounds present and Soft to palpation PALPATION: Yes Soft to palpation and Yes Tenderness to palpation present (GI) (RUQ) Extremity: COMMON NORMALS: no joint enlargement and no pedal edema Neuro: COMMON NORMALS: patient oriented x3 and moves all extremities Skin: COMMON NORMALS: no rashes or lesions noted GENERAL SKIN EXAM: no rashes or lesions noted Discharge Data Data Completed and Pending: Completed Studies During Hospitalization Category Date Time Status CT abdomen pelvis w con* [id number] Urge nt Cat Scan 09/10/20 22:05 Completed Pending at discharge Category Date Time Status Pathology: Surgic al [PTH] Routine Pth 09/11/20 11:35 Ordered Labs from last 24 hours 09/11/20 09/11/20 09/11/20 03:21 03:21 03:21 WBC 9.9 RBC 4.02 L Hgb 12.3 Hct 37.2 MCV 92.5 MCH 30.6 MCHC 33.1 RDW 14.1 Plt Count 307 MPV 9.7 Neut % (Auto) 77.7 Lymph % (Auto) 15.2 Gregory % (Auto) 5.8 Eos % (Auto) 0.5 Baso % (Auto) 0.6 Neut # (Auto) 7.71 H Lymph # (Auto) 1.5 Gregory # (Auto) 0.6 Eos # (Auto) 0.1 Baso # (Auto) 0.1 Nucleated RBC % (a uto) 0 Nucleated RBCs # 0.0 Sodium 135 L Potassium 3.0 L Chloride 99 Carbon Dioxide 28 Anion Gap 11.0 BUN 15 Creatinine 0.8 GFR Calculation Not Reportable Glucose 186 H Calculated Osmolal ity 286 Lactate 1.2 Calcium 8.8 Total Bilirubin AST ALT Alkaline Phosphata se Total Protein Albumin Globulin Lipase Urine Color Urine Appearance Urine pH Ur Specific Gravit y Urine Protein Urine Glucose (UA) Urine Ketones Urine Blood Urine Nitrate Urine Bilirubin Prot Sulfosalicyli c Acd Urine Urobilinogen Ur Leukocyte Dianna ase 09/10/20 09/10/20 09/10/20 23:49 20:58 20:58 WBC 14.3 H RBC 4.83 Hgb 14.7 Hct 44.8 MCV 92.8 MCH 30.4 MCHC 32.8 RDW 14.1 Plt Count 388 MPV 10.1 Neut % (Auto) 79.3 Lymph % (Auto) 12.3 Gregory % (Auto) 5.8 Eos % (Auto) 1.9 Baso % (Auto) 0.5 Neut # (Auto) 11.31 H Lymph # (Auto) 1.8 Gregory # (Auto) 0.8 Eos # (Auto) 0.3 Baso # (Auto) 0.1 Nucleated RBC % (a uto) 0 Nucleated RBCs # 0.0 Sodium 135 L Potassium 3.4 L Chloride 95 L Carbon Dioxide 26 Anion Gap 17.4 BUN 15 Creatinine 0.8 GFR Calculation Not Reportable Glucose 151 H Calculated Osmolal ity 284 L Lactate Calcium 9.9 Total Bilirubin 0.9 AST 23 ALT 22 Alkaline Phosphata se 118 H Total Protein 7.5 Albumin 3.8 Globulin 3.7 Lipase 25 Urine Color Yellow Urine Appearance Clear Urine pH 8 H Ur Specific Gravit y 1.010 Urine Protein Neg Urine Glucose (UA) Norm Urine Ketones Negative Urine Blood Neg Urine Nitrate Negative Urine Bilirubin Neg Prot Sulfosalicyli c Acd Negative Urine Urobilinogen Norm Ur Leukocyte Dianna ase Negative Vitals: Last Vital Signs Temp 98.1 F 09/11/20 12:35 Pulse 72 09/11/20 13:25 Resp 18 09/11/20 13:25 BP 148/72 09/11/20 13:25 Pulse Ox 97 09/11/20 13:25 Discharge Plan Discharge Condition: Stable Prescriptions: New hydrocodone-acetaminophen 5-325 mg tablet 1 - 2 tab PO Q5H PRN (Reason: pain) Qty: 30 RF: 0 Continued Pulmicort Flexhaler 180 mcg/actuation aerosol powdr breath activated 2 inh INHALATION BID RF: 0 hydrochlorothiazide 25 mg tablet 25 mg PO DAILY@0800 RF: 0 fexofenadine [Rafaela Allergy] 60 mg tablet 60 mg PO Q12H PRN (Reason: Allergy Symptoms) RF: 0 aspirin 81 mg Tablet,Delayed Release (/Ec) 81 mg PO DAILY@0800 RF: 0 amoxicillin-pot clavulanate 875-125 mg tablet 1 tab PO BID@00,1999 RF: 0 Discharge Orders: Discharge Order (Routine); Ordered 09/11/20 Ordered By: Rikki Soriano Referrals: Rikki Soriano MD [Physician] - 2 weeks (Nursing: Please have the patient / family call Dr. Soriano's office on Monday ([phone]) and make an appointment for the patient to be seen in 7-10 days.) Philippe Morrison MD [Primary Care Provider] - Discharge Diet: Advance as tolerated and As Directed Discharge Activity: Resume usual activity and Limit activity as instructed Patient Instructions: Hydrocodone/Acetaminophen (By mouth), Post Anesthesia Care Activity Restrictions/Additional Instructions: 1. Discharge to home today. 2. Appointment to see Dr. Soriano in 10-14 days as above. 3. Bandages / bandaids off on Monday (09-12-20), leave Steri-Strip(s) on, january shower. 4. [place]ula 5/325 1-2 tablets by mouth every 5 hours as needed for pain. #30, no refills. No lifting over 20 pounds, no repetitive bending or twisting, no strenuous pushing / pulling or other heavy activity. Ambulate regularly. May go up and down steps if needed. Discharge Attestations Time Spent in Discharge Care*: greater than 30 min Quality Metrics Clinical Quality Measures During this hospital stay, did patient experience: None Coding Level of Care Code Acute Adjunct Instructor Of Women'S Studies for Chg Fwd Diagnoses Acute cholecystitis K81.0 Sepsis A41.9
== END 2020-09-11 13:25 | disposition home or self-care (01) ==
LOC: ER 23:51 → ER IP 09-11 12:28 → OPS 09-11 13:20
PROVIDERS: Emergency Medicine; Surgery; Emergency Provider Family Medicine; PCP Family Medicine; Visit Provider Internal Medicine
PROC: 0FT44ZZ Resection of Gallbladder, Percutaneous Endoscopic Approach (ICD-10-PCS; CPT 47562; principal; 2020-09-11 10:30)
DX: A41.9 Sepsis, unspecified organism (principal); K80.10 Calculus of gallbladder with chronic cholecystitis without obstruction; I10 Essential (primary) hypertension; J45.909 Unspecified asthma, uncomplicated; Z85.41 Personal history of malignant neoplasm of cervix uteri
CPT/HCPCS: 47562; 12345; 74177; 80048; 80053; 81003; 83605; 83690; 85025; 88304; 99283; J0131; J0690; J1100; J1885; J2405; J2543; J2704; J2710; J3010; J3490; J7030; J7799; Q9967; S0030

== ENCOUNTER 2021-02-02 09:43 | Outpatient (CLI) | payer MEDICARE, OTHER, SELFPAY ==
--- NOTE | 2021-02-02 09:50 | MM_ITS ---
WS: [id number] BILATERAL SCREENING DIGITAL MAMMOGRAM WITH CAD HISTORY: SCREENING COMPARISON: 12/20/2018 and 12/07/2017 Bilateral CC and MLO views submitted. Computer aided detection analyzed. Breast composition: There are scattered areas of fibroglandular density. No suspicious masses, microc alcifications or architectural distortion. Benign calcifications RIGHT breast. MM/[id number] IMPRESSION: BI-RADS: 2-Benign FOLLOW UP: 1 Year Follow-up
== END 2021-02-02 09:44 | disposition home or self-care (01) ==
LOC: RADSHAW 09:47
PROVIDERS: PCP Family Medicine; Visit Provider Family Medicine
DX: Z12.31 Encounter for screening mammogram for malignant neoplasm of breast (principal)
CPT/HCPCS: 77067

== ENCOUNTER → 2021-02-10 13:08 | Outpatient (BNVA) | payer MEDICARE, OTHER, SELFPAY | PROVIDERS: PCP Family Medicine; Referring Provider Dermatology; Visit Provider Podiatrist Foot & Ankle Surgery | DX: M79.671 Pain in right foot (principal); M20.41 Other hammer toe(s) (acquired), right foot; M19.071 Primary osteoarthritis, right ankle and foot; M77.31 Calcaneal spur, right foot | CPT/HCPCS: 73630 ==

== ENCOUNTER → 2021-09-18 10:26 | Outpatient (BNVA) | payer MEDICARE, OTHER, SELFPAY | PROVIDERS: PCP Family Medicine; Visit Provider Nurse Practitioner | DX: R39.9 Unspecified symptoms and signs involving the genitourinary system (principal) | CPT/HCPCS: 81000 ==

== ENCOUNTER → 2021-10-15 18:40 | Outpatient (BNVA) | payer MEDICARE, OTHER, SELFPAY | PROVIDERS: PCP Family Medicine; Visit Provider Nurse Practitioner | DX: Z20.822 Contact with and (suspected) exposure to COVID-19 (principal) | CPT/HCPCS: 87635 ==

== ENCOUNTER 2022-01-26 10:21 | Outpatient (RCR) | payer MEDICARE, OTHER, SELFPAY | END 2022-02-15 23:59 | disposition home or self-care (01) | LOC: SPT 10:21 | PROVIDERS: PCP Family Medicine; Referring Provider Family Medicine; Visit Provider Family Medicine | DX: H81.10 Benign paroxysmal vertigo, unspecified ear (principal) | CPT/HCPCS: 95992; 97161 ==

== ENCOUNTER 2022-03-15 13:53 | Outpatient (CLI) | payer MEDICARE, OTHER, SELFPAY ==
--- NOTE | 2022-03-15 14:06 | MM_ITS ---
WS: [id number] BILATERAL 3D TOMOSYNTHESIS DIGITAL SCREENING MAMMOGRAPHY WITH CAD CLINICAL INFORMATION: SCREENING HISTORY: Screening mammogram. No current complaints. COMPARISON: February 02, 2021 TECHNIQUE: Bilateral CC and MLO views. FINDINGS: Scattered fibroglandular densities bilaterally. A few incidental punctate and lucent centered calcifi cations. Vascular calcification. No suspicious focal mass, asymmetry, calcifications, or architectura l distortion. No evidence of malignancy. MM/[id number] IMPRESSION: BI-RADS: 2-Benign FOLLOW UP: 1 Year Follow-up Recommend return to annual screening mammography.
== END 2022-03-15 13:54 | disposition home or self-care (01) ==
PROVIDERS: PCP Family Medicine; Visit Provider Family Medicine
DX: Z12.31 Encounter for screening mammogram for malignant neoplasm of breast (principal)
CPT/HCPCS: 77063; 77067

== ENCOUNTER → 2022-04-26 12:08 | Outpatient (BNVA) | payer MEDICARE, OTHER, SELFPAY | PROVIDERS: PCP Family Medicine; Visit Provider Registered Nurse Neonatal Intensive Care | DX: U07.1 COVID-19 (principal); B34.9 Viral infection, unspecified | CPT/HCPCS: 87426 ==

== ENCOUNTER → 2022-05-12 09:51 | Outpatient (BNVA) | payer MEDICARE, OTHER, SELFPAY | PROVIDERS: PCP Family Medicine; Visit Provider Family Medicine | DX: Z00.00 Encounter for general adult medical examination without abnormal findings (principal); I10 Essential (primary) hypertension; R42 Dizziness and giddiness | CPT/HCPCS: 80053; 80061; 84443; 85025 ==

== ENCOUNTER → 2023-03-15 11:35 | Outpatient (BNVA) | payer MEDICARE, OTHER, SELFPAY | PROVIDERS: PCP Family Medicine; Visit Provider Dermatology | DX: L57.0 Actinic keratosis (principal) | CPT/HCPCS: 96573 ==

== ENCOUNTER → 2023-03-30 09:29 | Outpatient (BNVA) | payer MEDICARE, OTHER, SELFPAY | PROVIDERS: PCP Family Medicine; Visit Provider Dermatology | DX: L57.0 Actinic keratosis (principal) | CPT/HCPCS: 17000; 96573 ==

== ENCOUNTER 2023-04-04 11:29 | Outpatient (CLI) | payer MEDICARE, OTHER, SELFPAY ==
--- NOTE | 2023-04-04 11:39 | MM_ITS ---
WS: [id number] BILATERAL 3D TOMOSYNTHESIS DIGITAL SCREENING MAMMOGRAPHY WITH CAD CLINICAL INFORMATION: SCREENING HISTORY: Screening mammogram. No current complaints. COMPARISON: 2021 TECHNIQUE: Bilateral CC and MLO views. FINDINGS: Scattered fibroglandular densities bilaterally. No suspicious focal mass, asymmetry, calcifications, or architectural distortion. No evidence of malignancy. Incidental punctate calcifications. Vascular calcification. MM/[id number] IMPRESSION: BI-RADS: 2-Benign FOLLOW UP: 1 Year Follow-up Recommend return to annual screening mammography.
== END 2023-04-04 11:30 | disposition home or self-care (01) ==
LOC: RAD 11:32 → MOBLMAM 11:37
PROVIDERS: PCP Family Medicine; Visit Provider Family Medicine
DX: Z12.31 Encounter for screening mammogram for malignant neoplasm of breast (principal)
CPT/HCPCS: 77063; 77067

== ENCOUNTER → 2023-05-11 11:40 | Outpatient (BNVA) | payer MEDICARE, OTHER, SELFPAY | PROVIDERS: PCP Family Medicine; Visit Provider Dermatology | DX: L57.0 Actinic keratosis (principal) | CPT/HCPCS: 96567 ==

== ENCOUNTER → 2023-06-13 13:05 | Outpatient (BNVA) | payer MEDICARE, OTHER, SELFPAY | PROVIDERS: PCP Family Medicine; Visit Provider Dermatology | DX: L02.424 Furuncle of left upper limb (principal); L82.1 Other seborrheic keratosis; L81.4 Other melanin hyperpigmentation; L57.8 Other skin changes due to chronic exposure to nonionizing radiation; D18.01 Hemangioma of skin and subcutaneous tissue; D17.1 Benign lipomatous neoplasm of skin and subcutaneous tissue of trunk; Z08 Encounter for follow-up examination after completed treatment for malignant neoplasm; Z85.828 Personal history of other malignant neoplasm of skin; L82.0 Inflamed seborrheic keratosis; L57.0 Actinic keratosis | CPT/HCPCS: 17000; 17110; 99214 ==

== ENCOUNTER → 2023-12-20 13:39 | Outpatient (BNVA) | payer MEDICARE, OTHER, SELFPAY | PROVIDERS: PCP Family Medicine; Visit Provider Dermatology | DX: D48.5 Neoplasm of uncertain behavior of skin (principal); D22.5 Melanocytic nevi of trunk; L23.9 Allergic contact dermatitis, unspecified cause; Z08 Encounter for follow-up examination after completed treatment for malignant neoplasm; Z85.828 Personal history of other malignant neoplasm of skin; L57.0 Actinic keratosis | CPT/HCPCS: 11102; 17000; 99213 ==

== ENCOUNTER 2024-04-18 10:44 | Outpatient (CLI) | payer MEDICARE, OTHER, SELFPAY ==
--- NOTE | 2024-04-18 10:50 | MM_ITS ---
WS: [id number] Bilateral screening 3D tomosynthesis digital mammogram, 04/18/2024 Clinical Data: SCREENING Comparison: 04/04/2023, 03/15/2022, 02/02/2021, 12/20/2018, 12/07/2017, 12/07/2015, 11/26/2015, 11/24/2014, 11/21, 11/19/2012, 11/07/2011, 11/05/2010, 11/04/2009, 11/03/2008, 11/01/2007. Findings: The breast parenchymal pattern shows fibroglandular tissue. No spiculated masses or clustered calcifi cations are seen. There are no secondary signs of carcinoma. Mole markers are on the left breast. MM/[id number] Impression: 1. Negative bilateral mammogram unchanged. 2. Recommend annual screening mammograms. BIRADS: 1-Negative FOLLOW UP: 1 Year Follow-up The CAD waterway traffic checker was used.
== END 2024-04-18 10:45 | disposition home or self-care (01) ==
LOC: RAD 10:46
PROVIDERS: PCP Family Medicine; Visit Provider Family Medicine
DX: Z12.31 Encounter for screening mammogram for malignant neoplasm of breast (principal)
CPT/HCPCS: 77063; 77067

== ENCOUNTER → 2024-07-15 08:50 | Outpatient (BNVA) | payer MEDICARE, OTHER, SELFPAY | PROVIDERS: PCP Family Medicine; Visit Provider Nurse Practitioner Family | DX: L57.0 Actinic keratosis (principal); L82.0 Inflamed seborrheic keratosis; L81.4 Other melanin hyperpigmentation; L57.8 Other skin changes due to chronic exposure to nonionizing radiation; D18.01 Hemangioma of skin and subcutaneous tissue; Z85.828 Personal history of other malignant neoplasm of skin | CPT/HCPCS: 17000; 17110; 99213 ==

== ENCOUNTER 2024-10-22 02:34 | Emergency (ER) | payer MEDICARE, OTHER, SELFPAY ==
[2024-10-22] VITALS (8 sets, daily range): BP systolic 139–186; BP diastolic 78–98; PULSE 60–85; RESP 14–21; O2SAT 91–99; BMI 33.9
--- NOTE | 2024-10-22 02:48 | W.ED.FEMALGU ---
Documented by User: Taj Hartman DO 10/22/24 02:50 HPI - Female Genitourinary General: Chief complaint: Urogenital-Female Stated complaint: Blood in Urine Time Seen by Provider: 10/22/24 02:39 History of Present Illness: Patient presents ER complaining of lower abdominal pain blood in her urine. Patient says she has had this before but never quite this bad. Patient denies any nausea vomiting diarrhea. Related Data Home Medications ?Medication ?Instructions ?Recorded ?Confirmed fexofenadine 60 mg tablet (Rafaela 60 mg PO Q12H PRN Allergy Symptoms 03/31/20 10/22/24 Allergy) aspirin 81 mg tablet,delayed 81 mg PO DAILY@0800 09/11/20 10/22/24 release amlodipine 5 mg tablet 5 mg PO DAILY 10/22/24 10/22/24 budesonide 180 mcg/actuation 2 inh inhalation BID 10/22/24 10/22/24 breath activated powder inhaler (Pulmicort Flexhaler) hydrochlorothiazide 25 mg tablet 25 mg PO DAILY 10/22/24 10/22/24 Previous Rx's ?Medication ?Instructions ?Recorded cefdinir 300 mg capsule 300 mg PO BID 7 days #14 caps 10/22/24 Allergies Allergy/AdvReac Type Severity Reaction Status Date / Time clarithromycin (From Biaxin) Allergy ALGY-Hives Verified 12/29/22 09:42 lisinopril Allergy ADR-Cough Verified 12/29/22 09:42 Review of Systems General: Reports: 10 or more systems reviewed and unremarkable except in HPI and below PFSH ED PFSH: Medical History Asthma Hypertension Cervical cancer 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 Colonic polyp Colonoscopy 2016 Surgical History History of cholecystectomy History of breast biopsy History of colonoscopy with polypectomy 2015 H/O: hysterectomy Family History Father Hypertension Denies family history of Anesthesia complication Bleeding disorder Social History Smoking and tobacco/nicotine status: never used tobacco/nicotine Alcohol intake: never Substance/Drug Use: never Adopted: No Caregiver/support person: Yes Lives independently: Yes Household members: spouse Housing: House Marital status: Current occupational status: retired Pets and animals: No Sexually active: No Do you think of yourself as: Straight/Heterosexual Current gender identity: Female Esmer/Hoahaoism: Baptist Special esmer needs: No Physical Exam Const: COMMON NORMALS: no acute distress, average body habitus, patient oriented x3, no limitations, healthy appearing, alert and well nourished HENMT: COMMON NORMALS: normocephalic, atraumatic, hearing grossly normal bilaterally, external ears normal, Normal external nose present and moist oral mucous membranes HEAD & SCALP: normocephalic and atraumatic NOSE: Normal external nose present EXTERNAL EAR: Yes external ears normal Neck/C-Spine: COMMON NORMALS: no JVD Chest: COMMONS NORMALS: normal inspection of the chest and normal palpation of entire chest wall Resp: COMMON NORMALS: normal respiratory effort, No retractions, No use of accessory muscles and clear to auscultation bilaterally AUSCULTATION: clear to auscultation bilaterally Cardio: COMMON NORMALS: no JVD, regular rate, regular rhythm, S1 normal heart sound present, S2 normal heart sound present, No gallops present (Cardio), No clicks present (Cardio), No murmurs present (Cardio) and No rub (Cardio) RATE: regular rate RHYTHM: regular rhythm HEART SOUNDS: S1 normal heart sound present and S2 normal heart sound present GI: COMMON NORMALS: Normal to inspection, nondistended, normoactive bowel sounds present, Soft to palpation, No hepatosplenomegaly present and no masses; negative for non-tender (Nontender to palpate lower abdomen) PALPATION: Yes Soft to palpation and Yes No hepatosplenomegaly present Neuro: COMMON NORMALS: patient oriented x3 SENSORIUM/ORIENTATION: Yes alert Course Vital Signs: Vital signs: Vital Signs Pulse Rate 66 10/22/24 07:28 Respiratory Rate 16 10/22/24 07:28 Blood Pressure 180/81 10/22/24 07:28 Pulse Oximetry 99 10/22/24 07:28 Oxygen Delivery Me thod Room Air 10/22/24 06:31 MDM - Female Medical Records I reviewed the patient's medical records. Lab Data I reviewed the patient's lab results. 10/22/24 03:00 10/22/24 03:00 Radiology Impressions Abdomen/Pelvis CT 10/22/24 04:00 IMPRESSION: 1. No renal or ureteral obstruction. 2. Tiny, nonobstructing calcification RIGHT renal pelvis. 3. Increased attenuation in the posterior urinary bladder just to the RIGHT of midline. This may be a hematoma or mass. Recommend follow-up imaging. Bladder ultrasound may not be of benefit due to the patient's body habitus. Follow-up CT urogram would probably be the most beneficial. 4. Prior cholecystectomy and hysterectomy. 5. Fatty replacement of the pancreas. Laboratory Results WBC 12.29 10^3/uL (3.29-11.43) H 10/22/24 03:00 RBC 4.72 10^6/uL (3.85-5.65) 10/22/24 03:00 Hgb 14.60 g/dL (11.27-16.99) 10/22/24 03:00 Hct 44.4 % (36-47) 10/22/24 03:00 MCV 94.1 fl (85-98) 10/22/24 03:00 MCH 30.9 pg (27-33) 10/22/24 03:00 MCHC 32.9 g/dL (30-55) 10/22/24 03:00 RDW 13.2 % (12.1-15.1) 10/22/24 03:00 Plt Count 295 10^3/cmm (157-399) 10/22/24 03:00 MPV 10.0 fL (7.4-10.4) 10/22/24 03:00 Neut % (Auto) 50.3 % 10/22/24 03:00 Lymph % (Auto) 39.5 % 10/22/24 03:00 [place] % (Auto) 5.9 % 10/22/24 03:00 Eos % (Auto) 3.4 % 10/22/24 03:00 Baso % (Auto) 0.7 % 10/22/24 03:00 Neut # (Auto) 6.18 10^3/uL (1.8-7.7) 10/22/24 03:00 Lymph # (Auto) 4.9 10^3/uL (0.8-4.8) H 10/22/24 03:00 [place] # (Auto) 0.7 10^3/uL (0.2-0.9) 10/22/24 03:00 Eos # (Auto) 0.4 10^3/uL (0.0-0.8) 10/22/24 03:00 Baso # (Auto) 0.1 10^3/uL (0.0-0.1) 10/22/24 03:00 Nucleated RBC % (auto) 0 % 10/22/24 03:00 Nucleated RBCs # 0.0 /100WBC 10/22/24 03:00 Sodium 136 mmol/L (136-145) 10/22/24 03:00 Potassium 3.0 mmol/L (3.5-5.1) L 10/22/24 03:00 Chloride 97 mmol/L (98-107) L 10/22/24 03:00 Carbon Dioxide 24 mmol/L (22-29) 10/22/24 03:00 Anion Gap 18.0 (5-19) 10/22/24 03:00 BUN 20 mg/dL (8-23) 10/22/24 03:00 Creatinine 0.8 mg/dL (0.5-0.9) 10/22/24 03:00 GFR Calculation Not Reportable 10/22/24 03:00 Glucose 139 mg/dL (65-115) H 10/22/24 03:00 Calculated Osmolality 287 mOsm/kg (285-295) 10/22/24 03:00 Calcium 9.0 mg/dL (8.5-10.5) 10/22/24 03:00 Total Bilirubin 0.4 mg/dL (0.15-1.2) 10/22/24 03:00 AST 17 U/L (0-32) 10/22/24 03:00 ALT 16 U/L (0-33) 10/22/24 03:00 Alkaline Phosphatase 103 U/L (35-105) 10/22/24 03:00 Total Protein 6.9 g/dL (6.6-8.7) 10/22/24 03:00 Albumin 3.7 g/dL (3.5-5.2) 10/22/24 03:00 Globulin 3.2 g/dL (1.3-4.6) 10/22/24 03:00 Urine Color Red (Yellow) A 10/22/24 02:50 Urine Appearance Cloudy (CLEAR) A 10/22/24 02:50 Urine pH Not Reportable 10/22/24 02:50 Ur Specific [place] Not Reportable 10/22/24 02:50 Urine Protein Not Reportable 10/22/24 02:50 Urine Glucose (UA) Not Reportable 10/22/24 02:50 Urine Ketones Not Reportable 10/22/24 02:50 Urine Blood Not Reportable 10/22/24 02:50 Urine Nitrate Not Reportable 10/22/24 02:50 Urine Bilirubin Not Reportable 10/22/24 02:50 Urine Urobilinogen Not Reportable 10/22/24 02:50 Ur Leukocyte Esterase Not Reportable 10/22/24 02:50 Urine RBC 15-25 /hpf (0-2) H 10/22/24 02:50 Urine WBC >100 /hpf (0-5) H 10/22/24 02:50 Ur Squamous Epith Cells 0-4 /hpf (0-5) H 10/22/24 02:50 Amorphous Sediment Not Reportable 10/22/24 02:50 Urine Bacteria Trace /hpf (NONE) 10/22/24 02:50 All radiology interpretation(s) finalized by discharge Discharge Plan Discharge Patient Disposition: Home Clinical Impression: Urinary tract infection Condition: Stable Prescriptions: New cefdinir 300 mg capsule 300 mg PO BID 7 Days Qty: 14 0RF No Action fexofenadine [Rafaela Allergy] 60 mg tablet 60 mg PO Q12H PRN (Reason: Allergy Symptoms) aspirin 81 mg Tablet,Delayed Release (Dr/Ec) 81 mg PO DAILY@0800 amlodipine 5 mg tablet 5 mg PO DAILY Rx Instructions: TAKE 1 TABLET BY MOUTH DAILY hydrochlorothiazide 25 mg tablet 25 mg PO DAILY Rx Instructions: TAKE 1 TABLET BY MOUTH EVERY DAY Pulmicort Flexhaler 180 mcg/actuation aerosol powdr breath activated 2 inh inhalation BID Rx Instructions: INHALE 2 PUFFS BY MOUTH TWICE DAILY Discharge Orders: Discharge ED (Routine); Ordered 10/22/24 Ordered By: Sofya Ortiz Referrals: Philippe Morrison MD [Primary Care Provider] - Discharge Diet: As Directed Discharge Activity: Increase activity as tolerated Patient Instructions: Urinary Tract Infection in Women (ED), Opioid Safety, Pain Management Activity Restrictions/Additional Instructions: There was an abnormal finding in your bladder. This could just be a simple blood clot but could also be a mass. You need follow-up imaging to be ordered by your primary provider and/or follow-up with urology. Thank you for choosing [facility] for your healthcare needs today. Please realize this is an emergency room and that we are providing you with a medical screening exam and this may not be complete and all inclusive of all the testing and or work up that you may need to determine your ailment or severity of your illness. You have been screened and evaluated and felt safe for discharge. Health conditions do change or evolve sometimes and as such it is important that you follow up with your Primary Doctor to be re checked, 3-5 days is a general good time frame for follow up. You are always welcome to return to the ED for re assessment if your symptoms are worsening or you have new concerns Print Language: Ecuadorean Coding Level of Care Code ED Linux Consultant for Chg Fwd Documented by User: Sofya Ortiz MD 10/22/24 08:28 HPI - Female Genitourinary General: Chief complaint: Urogenital-Female Stated complaint: Blood in Urine Time Seen by Provider: 10/22/24 02:39 Related Data Home Medications ?Medication ?Instructions ?Recorded ?Confirmed fexofenadine 60 mg tablet (Rafaela 60 mg PO Q12H PRN Allergy Symptoms 03/31/20 10/22/24 Allergy) aspirin 81 mg tablet,delayed 81 mg PO DAILY@0800 09/11/20 10/22/24 release amlodipine 5 mg tablet 5 mg PO DAILY 10/22/24 10/22/24 budesonide 180 mcg/actuation 2 inh inhalation BID 10/22/24 10/22/24 breath activated powder inhaler (Pulmicort Flexhaler) hydrochlorothiazide 25 mg tablet 25 mg PO DAILY 10/22/24 10/22/24 Previous Rx's ?Medication ?Instructions ?Recorded cefdinir 300 mg capsule 300 mg PO BID 7 days #14 caps 10/22/24 Allergies Allergy/AdvReac Type Severity Reaction Status Date / Time clarithromycin (From Biaxin) Allergy ALGY-Hives Verified 12/29/22 09:42 lisinopril Allergy ADR-Cough Verified 12/29/22 09:42 PFS ED PFSH: Medical History Asthma Hypertension Cervical cancer 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 Colonic polyp Colonoscopy 2015 Surgical History History of cholecystectomy History of breast biopsy History of colonoscopy with polypectomy 2015 H/O: hysterectomy Family History Father Hypertension Denies family history of Anesthesia complication Bleeding disorder Social History Smoking and tobacco/nicotine status: never used tobacco/nicotine Alcohol intake: never Substance/Drug Use: never Adopted: No Caregiver/support person: Yes Lives independently: Yes Household members: spouse Housing: House Marital status: Current occupational status: retired Pets and animals: No Sexually active: No Do you think of yourself as: Straight/Heterosexual Current gender identity: Female Esmer/Hoahaoism: Baptist Special esmer needs: No Course Vital Signs: Vital signs: Vital Signs Pulse Rate 66 10/22/24 07:28 Respiratory Rate 16 10/22/24 07:28 Blood Pressure 180/81 10/22/24 07:28 Pulse Oximetry 99 10/22/24 07:28 Oxygen Delivery Me thod Room Air 10/22/24 06:31 MDM - Female Medical Decision Making Patient care transitioned me at shift change awaiting imaging. CT shows no ureteral stones. However there is a attenuation in the posterior urinary bladder. This needs follow-up. Patient was informed. This was reviewed and interpreted by myself the emergency room physician. I also reviewed the radiology report. Assessment and plan: Urinary tract infection ?Rocephin in the emergency room. - Discharged home - Discussed plan with patient. Answered any questions. - Evaluation and treatment of this problem were appropriate in the emergency setting. Lab Data 10/22/24 03:00 10/22/24 03:00 Radiology Impressions Abdomen/Pelvis CT 10/22/24 04:00 IMPRESSION: 1. No renal or ureteral obstruction. 2. Tiny, nonobstructing calcification RIGHT renal pelvis. 3. Increased attenuation in the posterior urinary bladder just to the RIGHT of midline. This may be a hematoma or mass. Recommend follow-up imaging. Bladder ultrasound may not be of benefit due to the patient's body habitus. Follow-up CT urogram would probably be the most beneficial. 4. Prior cholecystectomy and hysterectomy. 5. Fatty replacement of the pancreas. Laboratory Results WBC 12.29 10^3/uL (3.29-11.43) H 10/22/24 03:00 RBC 4.72 10^6/uL (3.85-5.65) 10/22/24 03:00 Hgb 14.60 g/dL (11.27-16.99) 10/22/24 03:00 Hct 44.4 % (36-47) 10/22/24 03:00 MCV 94.1 fl (85-98) 10/22/24 03:00 MCH 30.9 pg (27-33) 10/22/24 03:00 MCHC 32.9 g/dL (30-55) 10/22/24 03:00 RDW 13.2 % (12.1-15.1) 10/22/24 03:00 Plt Count 295 10^3/cmm (157-399) 10/22/24 03:00 MPV 10.0 fL (7.4-10.4) 10/22/24 03:00 Neut % (Auto) 50.3 % 10/22/24 03:00 Lymph % (Auto) 39.5 % 10/22/24 03:00 [place] % (Auto) 5.9 % 10/22/24 03:00 Eos % (Auto) 3.4 % 10/22/24 03:00 Baso % (Auto) 0.7 % 10/22/24 03:00 Neut # (Auto) 6.18 10^3/uL (1.8-7.7) 10/22/24 03:00 Lymph # (Auto) 4.9 10^3/uL (0.8-4.8) H 10/22/24 03:00 [place] # (Auto) 0.7 10^3/uL (0.2-0.9) 10/22/24 03:00 Eos # (Auto) 0.4 10^3/uL (0.0-0.8) 10/22/24 03:00 Baso # (Auto) 0.1 10^3/uL (0.0-0.1) 10/22/24 03:00 Nucleated RBC % (auto) 0 % 10/22/24 03:00 Nucleated RBCs # 0.0 /100WBC 10/22/24 03:00 Sodium 136 mmol/L (136-145) 10/22/24 03:00 Potassium 3.0 mmol/L (3.5-5.1) L 10/22/24 03:00 Chloride 97 mmol/L (98-107) L 10/22/24 03:00 Carbon Dioxide 24 mmol/L (22-29) 10/22/24 03:00 Anion Gap 18.0 (5-19) 10/22/24 03:00 BUN 20 mg/dL (8-23) 10/22/24 03:00 Creatinine 0.8 mg/dL (0.5-0.9) 10/22/24 03:00 GFR Calculation Not Reportable 10/22/24 03:00 Glucose 139 mg/dL (65-115) H 10/22/24 03:00 Calculated Osmolality 287 mOsm/kg (285-295) 10/22/24 03:00 Calcium 9.0 mg/dL (8.5-10.5) 10/22/24 03:00 Total Bilirubin 0.4 mg/dL (0.15-1.2) 10/22/24 03:00 AST 17 U/L (0-32) 10/22/24 03:00 ALT 16 U/L (0-33) 10/22/24 03:00 Alkaline Phosphatase 103 U/L (35-105) 10/22/24 03:00 Total Protein 6.9 g/dL (6.6-8.7) 10/22/24 03:00 Albumin 3.7 g/dL (3.5-5.2) 10/22/24 03:00 Globulin 3.2 g/dL (1.3-4.6) 10/22/24 03:00 Urine Color Red (Yellow) A 10/22/24 02:50 Urine Appearance Cloudy (CLEAR) A 10/22/24 02:50 Urine pH Not Reportable 10/22/24 02:50 Ur Specific [place] Not Reportable 10/22/24 02:50 Urine Protein Not Reportable 10/22/24 02:50 Urine Glucose (UA) Not Reportable 10/22/24 02:50 Urine Ketones Not Reportable 10/22/24 02:50 Urine Blood Not Reportable 10/22/24 02:50 Urine Nitrate Not Reportable 10/22/24 02:50 Urine Bilirubin Not Reportable 10/22/24 02:50 Urine Urobilinogen Not Reportable 10/22/24 02:50 Ur Leukocyte Esterase Not Reportable 10/22/24 02:50 Urine RBC 15-25 /hpf (0-2) H 10/22/24 02:50 Urine WBC >100 /hpf (0-5) H 10/22/24 02:50 Ur Squamous Epith Cells 0-4 /hpf (0-5) H 10/22/24 02:50 Amorphous Sediment Not Reportable 10/22/24 02:50 Urine Bacteria Trace /hpf (NONE) 10/22/24 02:50 Discharge Plan Discharge Patient Disposition: Home Clinical Impression: Urinary tract infection Condition: Stable Prescriptions: New cefdinir 300 mg capsule 300 mg PO BID 7 Days Qty: 14 0RF No Action fexofenadine [Rafaela Allergy] 60 mg tablet 60 mg PO Q12H PRN (Reason: Allergy Symptoms) aspirin 81 mg Tablet,Delayed Release (Dr/Ec) 81 mg PO DAILY@0800 amlodipine 5 mg tablet 5 mg PO DAILY Rx Instructions: TAKE 1 TABLET BY MOUTH DAILY hydrochlorothiazide 25 mg tablet 25 mg PO DAILY Rx Instructions: TAKE 1 TABLET BY MOUTH EVERY DAY Pulmicort Flexhaler 180 mcg/actuation aerosol powdr breath activated 2 inh inhalation BID Rx Instructions: INHALE 2 PUFFS BY MOUTH TWICE DAILY Discharge Orders: Discharge ED (Routine); Ordered 10/22/24 Ordered By: Sofya Ortiz Referrals: Philippe Morrison MD [Primary Care Provider] - Discharge Diet: As Directed Discharge Activity: Increase activity as tolerated Patient Instructions: Urinary Tract Infection in Women (ED), Opioid Safety, Pain Management Activity Restrictions/Additional Instructions: There was an abnormal finding in your bladder. This could just be a simple blood clot but could also be a mass. You need follow-up imaging to be ordered by your primary provider and/or follow-up with urology. Thank you for choosing [facility] for your healthcare needs today. Please realize this is an emergency room and that we are providing you with a medical screening exam and this may not be complete and all inclusive of all the testing and or work up that you may need to determine your ailment or severity of your illness. You have been screened and evaluated and felt safe for discharge. Health conditions do change or evolve sometimes and as such it is important that you follow up with your Primary Doctor to be re checked, 3-5 days is a general good time frame for follow up. You are always welcome to return to the ED for re assessment if your symptoms are worsening or you have new concerns Print Language: Ecuadorean Coding Level of Care Code ED Linux Consultant for Jaky Mock
[2024-10-22] MEDS: HYDROcodone-acetaminophen 5-325 mg Tablet 1 TAB (03:57)
[2024-10-22] MEDS: potassium chloride ER 20 mEq Tablet 40 MEQ (03:57)
--- NOTE | 2024-10-22 04:00 | CT_ITS ---
WS: [id number] CT ABDOMEN AND PELVIS NONCONTRAST HISTORY: HEMATURIA / PELVIC PAIN TECHNIQUE: Imaging performed through the abdomen and pelvis. Coronal and sagittal reformats are submitted. All CT scans at [facility] use at least one of these dose optimization techniques: automated exposure control; mA and/or kV adjustment per patient size (includes targeted exams where dose is matched to clinical indication); or iterative reconstruction. DLP: 749.63 mGy COMPARISON: 09/10/2020 Lower thorax: Pulmonary hyperexpansion. Small LEFT diaphragmatic hernia. Mild cardiomegaly. Liver: Mild hepatomegaly. Gallbladder: Prior cholecystectomy. Pancreas: Diffuse fatty replacement. Spleen: Normal. Adrenal glands: Normal. No mass. Right kidney: 2 mm nonobstructing calcification mid RIGHT renal pelvis. No ureteral obstruction. Left kidney: Mild perinephric stranding. No obstruction. Aorta: Mild atherosclerosis abdominal aorta with no aneurysm. No free fluid, intraperitoneal air or significant lymphadenopathy. GI tract: Nondistended stomach. No small bowel obstruction. No enteritis or colitis. Normal appendix. Abdominal wall: Negative. No hernia. Pelvis: Uterus is absent. No free fluid or adenopathy in the pelvis. Variable attenuation in the urinary bladder. There is increased attenuation in the posterior urinary bladder which needs to be further evaluated. Size of the increased attenuation is approximately 10 mm. This may be hematoma or nodule. This attenuation was not present in 2019. Osseous structures: Moderate LEFT and mild RIGHT hip joint arthritis. Mild facet joint arthritis in the lumbar spine. CT/CT kidney stone 17650 IMPRESSION: 1. No renal or ureteral obstruction. 2. Tiny, nonobstructing calcification RIGHT renal pelvis. 3. Increased attenuation in the posterior urinary bladder just to the RIGHT of midline. This may be a hematoma or mass. Recommend follow-up imaging. Bladder ultrasound may not be of benefit due to the patient's body habitus. Follow-up C T urogram would probably be the most beneficial. 4. Prior cholecystectomy and hysterectomy. 5. Fatty replacement of the pancreas.
[2024-10-22 05:30] LABS: Basophils # 0.1 10^3/uL (0.0-0.1); Basophils % 0.7 %; Eosinophils # 0.4 10^3/uL (0.0-0.8); Eosinophils % 3.4 %; Hematocrit 44.4 % (36-47); Lymphocytes # 4.9 10^3/uL (0.8-4.8); Lymphocytes % 39.5 %; Mean Corpuscular HGB Conc 32.9 g/dL (30-55); Mean Corpuscular Hemoglobin 30.9 pg (27-33); Mean Corpuscular Volume 94.1 fl (85-98); Monocytes # 0.7 10^3/uL (0.2-0.9); Monocytes % 5.9 %; Neutrophils # 6.18 10^3/uL (1.8-7.7); Neutrophils % 50.3 %; Nucleated Red Blood Cells % 0 %; Platelet Count 295 10^3/cmm (157-399); Red Blood Count 4.72 10^6/uL (3.85-5.65); Red Cell Distribution Width 13.2 % (12.1-15.1); White Blood Count 12.29 10^3/uL (3.29-11.43)
[2024-10-22 05:52] LABS: Alanine Aminotransferase 16 U/L (0-33); Albumin Level 3.7 g/dL (3.5-5.2); Alkaline Phosphatase 103 U/L (35-105); Aspartate Amino Transferase 17 U/L (0-32); Blood Urea Nitrogen 20 mg/dL (8-23); Carbon Dioxide 24 mmol/L (22-29); Chloride 97 mmol/L (98-107); Creatinine Clr Calc Pharmacy 68.5009; Globulin 3.2 g/dL (1.3-4.6); Glucose 139 mg/dL (65-115); Osmolality Calculated 287 mOsm/kg (285-295); Sodium 136 mmol/L (136-145); Total Bilirubin 0.4 mg/dL (0.15-1.2); Total Protein 6.9 g/dL (6.6-8.7)
[2024-10-22 05:52] LABS: Urine Appearance Cloudy (CLEAR); Urine Color Red (Yellow)
[2024-10-22 05:53] LABS: Add Urine Culture? Yes; Add Urine Microscopic? YES; Bacteria Urine TRACE /hpf; RBC Urine 15-25 /hpf (0-2); Squamous Epithelial Cell Urine 0-4 /hpf (0-5); UA Manual Slide Review YES; UA Slide Review UA Slide Review Perf; WBC Urine >100 /hpf (0-5)
[2024-10-22] MEDS: cefTRIAXone 1,000 mg SDV 1000 MG IVP (06:45)
== END 2024-10-22 08:39 | disposition home or self-care (01) ==
PROVIDERS: Emergency Medicine; Emergency Provider Emergency Medicine; PCP Family Medicine
DX: N39.0 Urinary tract infection, site not specified (principal); Z79.82 Long term (current) use of aspirin; Z85.41 Personal history of malignant neoplasm of cervix uteri; I10 Essential (primary) hypertension
CPT/HCPCS: 74176; 80053; 81001; 85025; 87077; 87086; 87186; 96374; 99285; J0696

== ENCOUNTER → 2024-10-24 12:05 | Outpatient (BNVA) | payer MEDICARE, OTHER, SELFPAY | PROVIDERS: PCP Family Medicine; Visit Provider Family Medicine | DX: N39.0 Urinary tract infection, site not specified (principal) | CPT/HCPCS: 81000 ==

== ENCOUNTER → 2025-03-24 12:51 | Outpatient (BNVA) | payer MEDICARE, OTHER, SELFPAY | PROVIDERS: PCP Family Medicine; Visit Provider Nurse Practitioner Family | DX: L81.4 Other melanin hyperpigmentation (principal); S80.862A Insect bite (nonvenomous), left lower leg, initial encounter; S80.861A Insect bite (nonvenomous), right lower leg, initial encounter; L57.8 Other skin changes due to chronic exposure to nonionizing radiation; X32.XXXA Exposure to sunlight, initial encounter; X58.XXXA Exposure to other specified factors, initial encounter; D18.01 Hemangioma of skin and subcutaneous tissue; L82.1 Other seborrheic keratosis; Z08 Encounter for follow-up examination after completed treatment for malignant neoplasm; Z85.828 Personal history of other malignant neoplasm of skin; L82.0 Inflamed seborrheic keratosis; Z78.9 Other specified health status; R58 Hemorrhage, not elsewhere classified | CPT/HCPCS: 17000; 17110; 99213 ==

== ENCOUNTER 2025-05-05 10:08 | Outpatient (CLI) | payer MEDICARE, OTHER, SELFPAY ==
--- NOTE | 2025-05-05 10:12 | MM_ITS ---
WS: [id number] BILATERAL 3D TOMOSYNTHESIS DIGITAL SCREENING MAMMOGRAPHY WITH CAD CLINICAL INFORMATION: SCREENING HISTORY: Screening mammogram. No current complaints. COMPARISON: 2023 TECHNIQUE: Bilateral CC and MLO views. FINDINGS: Scattered fibroglandular densities bilaterally. No suspicious focal mass, asymmetry, calcifications, or architectural distortion. No evidence of malignancy. Stable punctate calcifications RIGHT breast. Vascular calcification. MM/MM scr BI tomosynthesis 03131 IMPRESSION: DENSITY: There are scattered areas of fibroglandular density. BI-RADS: 2 - Benign. FOLLOW UP: 1 Year Follow-up Recommend return to annual screening mammography.
== END 2025-05-05 10:09 | disposition home or self-care (01) ==
LOC: RAD 10:10
PROVIDERS: PCP Family Medicine; Visit Provider Family Medicine
DX: Z12.31 Encounter for screening mammogram for malignant neoplasm of breast (principal); R92.323 Mammographic fibroglandular density, bilateral breasts; R92.1 Mammographic calcification found on diagnostic imaging of breast
CPT/HCPCS: 77063; 77067

== ENCOUNTER 2025-08-29 08:31 | Outpatient (RCR) | payer MEDICARE, OTHER, SELFPAY | END 2025-09-17 23:59 | disposition home or self-care (01) | LOC: SPT 08:31 | PROVIDERS: PCP Family Medicine; Visit Provider Student in an Organized Health Care Education/Training Program | DX: M17.11 Unilateral primary osteoarthritis, right knee (principal); Z47.1 Aftercare following joint replacement surgery; Z96.651 Presence of right artificial knee joint | CPT/HCPCS: 97110; 97161 ==